=== PATIENT | male | born 1955 | race Caucasian/White ===

== ENCOUNTER 2016-12-12 17:32 | Emergency (ER) | payer OTHER ==
[~2016-12-12] VITALS: Ht 172.7 cm; Wt 70.0 kg
[~2016-12-12 17:32] MED LIST: LOSA25TA31 PO
--- NOTE | 2016-12-12 19:20 | PD ---
HPI Chief Complaint: Alcohol/Drug Intoxication Time Seen by Provider: 19:04 Travel History International Travel<30 days: No Contact w/Intl Traveler<30days: No History of Present Illness HPI 61yo M brought in here for alcohol intoxication. Pt has no signs of trauma. States "leave me alone". Pt answers some questions and moves all extremities. However, history is limited because he does not want to answer my questions. Pt has been here for alcohol intoxication before. PFSH Past Medical History Arthritis: Yes Blood Disorders: No Anxiety: Yes Cancer: No Cardiovascular Problems: No High Cholesterol: Yes Diminished Hearing: No Endocrine: No Genitourinary: No Hypertension: Yes Immune Disorder: No Musculoskeletal: No Neurologic: No Psychiatric: No Reproductive: No Respiratory: No Immunizations Current: Yes Past Surgical History Abdominal Surgery: No Cardiac Surgery: No Ear Surgery: No Endocrine Surgery: No Eye Surgery: No Genitourinary Surgery: No Gynecologic Surgery: No Oral Surgery: No Thoracic Surgery: No Other Surgery: Yes Social History Alcohol Use: Yes (OCCASIONALLY) Tobacco Use: No Substance Use: No Allergies-Medications (Allergen,Severity, Reaction): Coded Allergies: Doxycycline (Verified Allergy, Severe, Rash, 12/12/16) Bactrim (Verified Allergy, Intermediate, 12/12/16) itching, burning, joint pain *MDRO Multi-Drug Resistant Organism (Verified Adverse Reaction, Unknown, ) MRSA, wound, 05/2014 Reported Meds & Prescriptions Reported Meds & Active Scripts Active No Active Prescriptions or Reported Medications Review of Systems ROS Limitations: Intoxication Physical Exam Narrative GENERAL: 61yo M not in distress. SKIN: Warm and dry. HEAD: Atraumatic. Normocephalic. EYES: Pupils equal and round at 3mm bilaterally. NECK: Trachea midline. No JVD. CARDIOVASCULAR: Regular rate and rhythm. No murmur appreciated. RESPIRATORY: No accessory muscle use. Clear to auscultation. Breath sounds equal bilaterally. GASTROINTESTINAL: Abdomen soft, non-tender, nondistended. No rebound tenderness or guarding. MUSCULOSKELETAL: No obvious deformities. No clubbing. No cyanosis. No edema. NEUROLOGICAL: Easily arousable. Moves all extremities. Data Data Last Documented VS Vital Signs Date Time Temp Pulse Resp B/P Pulse Ox O2 Delivery O2 Flow Rate FiO2 12/12/16 20:01 95 Room Air 12/12/16 19:59 97.9 88 18 123/57 Orders MDM Medical Decision Making Medical Screen Exam Complete: Yes Emergency Medical Condition: Yes Differential Diagnosis Alcohol intoxication Narrative Course 61yo M brought in for alcohol intoxication. Pt has no complaints and no signs of trauma. Pt is verbally abusive to staff and refusing blood work. At this time, I feel that pt is awake, answering questions and just wants to sleep it off. Pt is calm if we leave him alone so do not feel restraints are needed. I do not feel lab work is required at this time so cancelled it. Pt will be observed in the ED until he is able to ambulate without assistance. Vital signs stable. Pt is now ambulating in the ED without assistance and demanding to get his back pack. Pt has no complaints, is AAOx3 and clinically sober to go home. Diagnosis Primary Impression: Alcohol intoxication Qualified Code: F10.120 - Alcohol intoxication, uncomplicated Patient Instructions: General Instructions Departure Forms: Tests/Procedures Additional Instructions: Please follow up with your PMD in 3-7 days. Return to the ED if symptoms worsen. Med/Other Pt SpecificInfo: No Change to Meds Scripts No Active Prescriptions or Reported Meds Disposition: 01 DISCHARGE HOME Condition: Stable Aurelia Martin DO Dec 12, 2016 19:20 Aurelia Martin DO Dec 12, 2016 19:20
[2016-12-12 19:59] VITALS: BP 123/57; PULSE 88; RESP 18; TEMP 97.9; O2SAT 95
== END 2016-12-13 00:40 | disposition home or self-care (01) ==
LOC: NEDAMB 17:32 → NEPA 12-13 00:40
DX: F10.120 Alcohol abuse with intoxication, uncomplicated (principal)
CPT/HCPCS: 99284

== ENCOUNTER 2017-05-16 13:31 | Emergency (ER) | payer OTHER ==
[2017-05-16 13:33] VITALS: BP 134/89; PULSE 104; RESP 15; TEMP 98.4; O2SAT 98
--- NOTE | 2017-05-16 13:43 | PD ---
HPI . b/l toes with scabbed area x few days Chief Complaint: Injury Time Seen by Provider: 13:43 Travel History International Travel<30 days: No Contact w/Intl Traveler<30days: No Traveled to known affect area: No History of Present Illness HPI 61-year-old male well known to me from the [facility] here with complaints of scabs over his toes that has been present for the past several days. Patient is homeless and has been going to the [facility] for generalized assistance. He reports that he was seen there today and told her needs to come into the ED for evaluation of his toes. He has not tried reaching out to the [facility] and came straight over here. He denies any fever or chills. He has no other complaints. PFSH Past Medical History Arthritis: Yes Blood Disorders: No Anxiety: Yes Cancer: No Cardiovascular Problems: No High Cholesterol: Yes Diminished Hearing: No Endocrine: No Genitourinary: No Hypertension: Yes Immune Disorder: No Musculoskeletal: No Neurologic: No Psychiatric: No Reproductive: No Respiratory: No Immunizations Current: Yes Past Surgical History Abdominal Surgery: No Cardiac Surgery: No Ear Surgery: No Endocrine Surgery: No Eye Surgery: No Genitourinary Surgery: No Gynecologic Surgery: No Oral Surgery: No Thoracic Surgery: No Other Surgery: Yes Social History Alcohol Use: Yes (OCCASIONALLY) Tobacco Use: No Substance Use: No Allergies-Medications (Allergen,Severity, Reaction): Coded Allergies: doxycycline (Unverified Allergy, Severe, Rash, 05/06/17) sulfamethoxazole (Unverified Allergy, Intermediate, 05/06/17) itching, burning, joint pain trimethoprim (Unverified Allergy, Intermediate, 05/06/17) itching, burning, joint pain *MDRO Multi-Drug Resistant Organism (Verified Adverse Reaction, Unknown, ) MRSA, wound, 05/2014 Reported Meds & Prescriptions Reported Meds & Active Scripts Active No Active Prescriptions or Reported Medications Review of Systems General / Constitutional: No: Fever Eyes: No: Visual changes HENT: No: Headaches Cardiovascular: No: Chest Pain or Discomfort Respiratory: No: Shortness of Breath Gastrointestinal: No: Abdominal Pain Genitourinary: No: Dysuria Musculoskeletal: No: Pain Skin: Positive Other (callus of feet ), No Rash Neurologic: No: Weakness Psychiatric: No: Depression Endocrine: No: Polydipsia Hematologic/Lymphatic: No: Easy Bruising Physical Exam Narrative GENERAL: AAO x 3, no acute distress, Well-nourished, well-developed patient. SKIN: Warm and dry. No visible rashes or bruising. Bilateral fourth toes on each feet with callus skin without any evidence of infection HEAD: Normocephalic and atraumatic. EYES: No scleral icterus. No injection or drainage. ENT: No nasal drainage noted. Mucous membranes pink. Airway patent. NECK: Supple, trachea midline. No JVD. CARDIOVASCULAR: Regular rate and rhythm without murmurs, gallops, or rubs. RESPIRATORY: Breath sounds equal bilaterally. No accessory muscle use. No rhonchi or rales. GASTROINTESTINAL: Visual inspection normal EXTREMITIES: No cyanosis or edema. BACK: No obvious deformity NEURO: Grossly intact PSYCH: AAO x 3, normal affect. Data Data Last Documented VS Vital Signs Date Time Temp Pulse Resp B/P (MAP) Pulse Ox O2 Delivery O2 Flow Rate FiO2 05/16/17 13:33 98.4 104 15 134/89 (104) 98 MDM Medical Decision Making Medical Screen Exam Complete: Yes Emergency Medical Condition: Yes Medical Record Reviewed: Yes Differential Diagnosis Callused skin, less likely cellulitis, less likely fracture Narrative Course A medical screening exam was performed: At the time of evaluation the presenting medical condition was determined not to be of an emergent nature. The patient was given the option of receiving additional care, but declined. Patient was given options for additional community resources from which to obtain care. The Patient Has Been advised to seek medical attention for their presenting complaint. The patient has been advised to return to the ER at any time if an emergent condition develops. I have personally be stuck to the provider at the [facility]. She will see the patient today. Patient was escorted to the [facility] for further workup and treatment. Diagnosis Primary Impression: Encounter for medical screening examination Scripts No Active Prescriptions or Reported Meds Condition: Leslie Becerril May 16, 2017 13:43
[2017-05-27] MEDS ORDERED: LEVA500T20 PO (07:27)
== END 2017-05-16 14:15 | disposition left against medical advice (07) ==
LOC: NEPK 13:31
DX: R23.4 Changes in skin texture (principal); M13.80 Other specified arthritis, unspecified site; F41.9 Anxiety disorder, unspecified; I10 Essential (primary) hypertension; Z59.0 Homelessness; Z88.2 Allergy status to sulfonamides; Z88.8 Allergy status to other drugs, medicaments and biological substances
CPT/HCPCS: 99281

== ENCOUNTER → 2017-05-21 | Outpatient (CLI) | payer OTHER ==
[~2017-05-21] MED LIST changes: +CEPH-460 PO; +CLIN1CAP5 PO; +LEVA500T20 PO; -LOSA25TA31 PO
[2017-05-21 11:57] LABS: HEMATOCRIT 35.1 % (39.0-51.0); MEAN CELL VOLUME 96.8 FL (80.0-100.0); MEAN CORPUSCULAR HEMOGLOBIN 32.3 PG (27.0-34.0); MEAN CORPUSCULAR HGB CONC 33.4 % (32.0-36.0); PLATELET COUNT 167 TH/MM3 (150-450); RED BLOOD COUNT 3.63 MIL/MM3 (4.50-5.90); RED CELL DISTRIBUTION WIDTH 14.7 % (11.6-17.2); REVIEW FLAG FINAL; WHITE BLOOD COUNT 5.5 TH/MM3 (4.0-11.0)
[2017-05-21 12:15] LABS: ANION GAP 8 MEQ/L (5-15); AST (GOT) 14 U/L (15-37); BICARBONATE 25.6 MEQ/L (21.0-32.0); BLOOD UREA NITROGEN 14 MG/DL (7-18); CHLORIDE 106 MEQ/L (98-107); GLOMERULAR FILTRATION RATE 92 ML/MIN (>89); GLUCOSE,FASTING 85 MG/DL (74-99); POTASSIUM 3.7 MEQ/L (3.5-5.1); SODIUM (NA) 140 MEQ/L (136-145)
[2017-05-21 12:16] LABS: ALT (GPT) 23 U/L (12-78)
[2017-05-21 12:26] LABS: ALKALINE PHOSPHATASE 87 U/L (45-117); HDL CHOLESTEROL 52.5 MG/DL (40.0-60.0); LDL CHOLESTEROL 81 MG/DL (0-99); TOTAL BILIRUBIN ADULT 0.5 MG/DL (0.2-1.0)
== END ==
LOC: CLAB 11:23
PROVIDERS: ATTEND Nurse Practitioner Family
DX: I10 Essential (primary) hypertension (principal)
CPT/HCPCS: 36415; 80053; 80061; 84443; 85027

== ENCOUNTER 2017-07-04 13:00 | Emergency (ER) | payer OTHER ==
[~2017-07-04] VITALS: Ht 177.8 cm; Wt 70.0 kg
[~2017-07-04 13:00] MED LIST changes: -CEPH-460 PO; -CLIN1CAP5 PO
[2017-07-04 13:02] VITALS: BP 133/85; PULSE 107; RESP 14; TEMP 98; O2SAT 98
[2017-07-04] MEDS ORDERED: CEPH-460 PO (14:59)
[2017-07-04] MEDS ORDERED: CLIN1CAP5 PO (15:00)
--- NOTE | 2017-07-04 15:00 | PD ---
HPI Chief Complaint: Skin Problem Time Seen by Provider: 14:57 Travel History International Travel<30 days: No Contact w/Intl Traveler<30days: No Traveled to known affect area: No History of Present Illness HPI 61-year-old male presents emergency Department with complaint of an infected blister to his right index finger 4 days. Says he popped the blister and pulled away the skin and thinks it's now infected. Denies fever, vomiting. Denies paresthesias, loss of sensation, decreased range of motion to the affected finger. Has not taken any medications to alleviate his symptoms. Has been using a cover bandage for wound care. No known aggravating or relieving factors. Symptoms are mild in severity. Pain is described as throbbing and burning sensation. History of MRSA. Allergies to doxycycline, sulfamethoxazole , trimethoprim. Has no other medical complaints. No other modifying factors or associated signs and symptoms. PFSH Past Medical History Arthritis: Yes Blood Disorders: No Anxiety: Yes Cancer: No Cardiovascular Problems: No High Cholesterol: Yes Diminished Hearing: No Endocrine: No Genitourinary: No Hypertension: Yes Immune Disorder: No Musculoskeletal: No Neurologic: No Psychiatric: No Reproductive: No Respiratory: No Immunizations Current: Yes Past Surgical History Abdominal Surgery: No Cardiac Surgery: No Ear Surgery: No Endocrine Surgery: No Eye Surgery: No Genitourinary Surgery: No Gynecologic Surgery: No Oral Surgery: No Thoracic Surgery: No Other Surgery: Yes Social History Alcohol Use: Yes (OCCASIONALLY) Tobacco Use: No Substance Use: No Allergies-Medications (Allergen,Severity, Reaction): Coded Allergies: doxycycline (Verified Allergy, Severe, Rash, 07/04/17) sulfamethoxazole (Verified Allergy, Intermediate, 07/04/17) itching, burning, joint pain trimethoprim (Verified Allergy, Intermediate, 07/04/17) itching, burning, joint pain *MDRO Multi-Drug Resistant Organism (Verified Adverse Reaction, Unknown, 07/04/17) MRSA, wound, 05/2014 Reported Meds & Prescriptions Reported Meds & Active Scripts Active Clindamycin (Clindamycin HCl) 150 Mg Cap 300 Mg PO Q6H 10 Days Levaquin (Levofloxacin) 500 Mg Tablet 500 Mg PO DAILY 10 Days Review of Systems Except as stated in HPI: all other systems reviewed are Neg Physical Exam Narrative GENERAL: Well-nourished, well-developed male patient, in no acute distress SKIN: Warm and dry. Distal, lateral aspect of right index finger with open moist, erythemic wound with erythema surrounding the wound; no drainage noted; the finger is mildly edematous and without erythema; finger with full range of motion, sensory intact, less than 3 second cap refill. HEAD: Atraumatic. Normocephalic. EYES: Pupils equal and round. No scleral icterus. No injection or drainage. ENT: Mucosa pink and moist. Airway patent. NECK: Trachea midline. CARDIOVASCULAR: Regular rate. RESPIRATORY: No accessory muscle use. GASTROINTESTINAL: Flap. MUSCULOSKELETAL: No obvious deformities. No clubbing. No cyanosis. No edema. NEUROLOGICAL: Awake and alert. Oriented 3. No obvious cranial nerve deficits. Motor grossly within normal limits. Normal speech. PSYCHIATRIC: Appropriate mood and affect; insight and judgment normal. Data Data Last Documented VS Vital Signs Date Time Temp Pulse Resp B/P (MAP) Pulse Ox O2 Delivery O2 Flow Rate FiO2 07/04/17 15:35 07/04/17 13:02 98.0 107 14 98 Orders Orders Ed Discharge Order (07/04/17 15:00) Wound Care (07/04/17 15:00) MDM Medical Decision Making Medical Screen Exam Complete: Yes Emergency Medical Condition: Yes Medical Record Reviewed: Yes Differential Diagnosis Infected wound, infected blister, abrasion Narrative Course 61-year-old male with a infected blister to his right index finger. Patient is afebrile and nontoxic-appearing. Denies fever, vomiting. Clindamycin prescribed for home. Wound care provided. Instructed patient to follow up with primary care provider. Patient verbalizes understanding and agreement with treatment plan. Patient is medically cleared and stable for discharge. Discussed reasons to return to the emergency department. Patient agrees with treatment plan. The patients vital signs are stable and the patient is stable for outpatient follow-up and treatment. Patient discharged home, stable and in no acute distress. Diagnosis Primary Impression: Finger, blister, infected Referrals: [facility] Primary Care Physician Patient Instructions: Acute Wound Care (DC), General Instructions Additional Instructions: Antibiotics as prescribed Antibiotic topical ointment as directed and as needed for wound care Keep area clean and dry Ibuprofen or Tylenol as directed and as needed for pain and inflammation Follow-up with primary care provider Return to the emergency department immediately with worsening of symptoms Med/Other Pt SpecificInfo: Prescription(s) given Scripts Clindamycin (Clindamycin) 150 Mg Cap 300 MG PO Q6H for Infection for 10 Days, #80 CAP 0 Refills Prov: Chelsy Peguero 07/04/17 Disposition: 01 DISCHARGE HOME Condition: Stable Chelsy Peguero Jul 04, 2017 15:00
== END 2017-07-04 15:37 | disposition home or self-care (01) ==
LOC: NEPK 13:00
DX: S60.420A Blister (nonthermal) of right index finger, initial encounter (principal); X58.XXXA Exposure to other specified factors, initial encounter; E78.5 Hyperlipidemia, unspecified; I10 Essential (primary) hypertension; F41.9 Anxiety disorder, unspecified
CPT/HCPCS: 99283

== ENCOUNTER 2018-01-03 10:39 | Emergency (ER) | payer SELFPAY ==
[~2018-01-03 10:39] MED LIST changes: +CLIN150C14 PO; -LEVA500T20 PO; +LEVA500T33 PO
[2018-01-03 10:41] VITALS: BP 142/68; PULSE 86; RESP 18; TEMP 98; O2SAT 97
--- NOTE | 2018-01-03 10:53 | PD ---
HPI Chief Complaint: Cold / Flu Symptoms Time Seen by Provider: 10:46 Travel History International Travel<30 days: No Contact w/Intl Traveler<30days: No Traveled to known affect area: No History of Present Illness HPI This is a 62-year-old male smoker who presents for evaluation of cough. Symptoms started 3 weeks ago. The cough is primarily dry but occasionally productive with yellow sputum. Cough is worse at night. Endorses associated nasal congestion. Denies fevers, chills, sore throat, shortness of breath, chest pain, abdominal pain, rash or recent travel. He has not tried using any [id number] medication for symptom relief. Denies any history of cardiac or pulmonary illness. He has no other complaints. PFSH Past Medical History Arthritis: Yes Blood Disorders: No Anxiety: Yes Cancer: No Cardiovascular Problems: No High Cholesterol: Yes Diminished Hearing: No Endocrine: No Genitourinary: No Hypertension: Yes Immune Disorder: No Musculoskeletal: No Neurologic: No Psychiatric: No Reproductive: No Respiratory: No Immunizations Current: Yes Past Surgical History Abdominal Surgery: No Cardiac Surgery: No Ear Surgery: No Endocrine Surgery: No Eye Surgery: No Genitourinary Surgery: No Gynecologic Surgery: No Oral Surgery: No Thoracic Surgery: No Other Surgery: Yes Social History Alcohol Use: Yes (OCCASIONALLY) Tobacco Use: No Substance Use: No Allergies-Medications (Allergen,Severity, Reaction): Coded Allergies: doxycycline (Verified Allergy, Severe, Rash, 07/04/17) sulfamethoxazole (Verified Allergy, Intermediate, 07/04/17) itching, burning, joint pain trimethoprim (Verified Allergy, Intermediate, 07/04/17) itching, burning, joint pain *MDRO Multi-Drug Resistant Organism (Verified Adverse Reaction, Unknown, 07/04/17) MRSA, wound, 05/2014 Reported Meds & Prescriptions Reported Meds & Active Scripts Active Tessalon Perles (Benzonatate) 100 Mg Cap 100 Mg PO TID PRN Azithromycin 250 Mg Tab 250 Mg PO DIRECTED Take 2 tabs (500 mg) on day 1 then 1 tab daily x 4 days. Clindamycin (Clindamycin HCl) 150 Mg Cap 300 Mg PO Q6H 10 Days Levaquin (Levofloxacin) 500 Mg Tablet 500 Mg PO DAILY 10 Days Review of Systems Except as stated in HPI: all other systems reviewed are Neg Physical Exam Narrative GENERAL: Well-developed well-nourished male in no acute distress SKIN: Warm and dry. HEAD: Atraumatic. Normocephalic. EYES: Pupils equal and round. No scleral icterus. No injection or drainage. ENT: No nasal bleeding or discharge. Mucous membranes pink and moist. No oral pharyngeal erythema or exudate. NECK: Trachea midline. No JVD. No lymphadenopathy. CARDIOVASCULAR: Regular rate and rhythm. No murmur appreciated. RESPIRATORY: No accessory muscle use. Clear to auscultation. Breath sounds equal bilaterally. No crackles no wheezing no rhonchi GASTROINTESTINAL: Abdomen soft, non-tender, nondistended. Hepatic and splenic margins not palpable. MUSCULOSKELETAL: No obvious deformities. No edema NEUROLOGICAL: Awake and alert. No obvious cranial nerve deficits. Motor grossly within normal limits. Normal speech. Data Data Last Documented VS Vital Signs Date Time Temp Pulse Resp B/P (MAP) Pulse Ox O2 Delivery O2 Flow Rate FiO2 01/03/18 10:41 98.0 86 18 142/68 (92) 97 Orders Orders Chest, Pa & Lat (01/03/18 ) [facility] Medical Decision Making Medical Screen Exam Complete: Yes Emergency Medical Condition: Yes Medical Record Reviewed: Yes Differential Diagnosis Bronchitis, pneumonia, rhinitis, sinusitis, COPD Narrative Course 62-year-old male smoker presents with a cough for 3 weeks. He appears well. His lungs are clear to auscultation. Given the duration of symptoms a chest x- ray was obtained and it reveals no acute abnormalities. The plan is to treat the patient with azithromycin and Tessalon. He was strongly encouraged to quit smoking. He is stable for discharge. Diagnosis Primary Impression: Bronchitis Additional Instructions: Medication as prescribed. Avoid tobacco products. Follow-up with primary care physician as needed and return for any emergent medical conditions. Med/Other Pt SpecificInfo: Prescription(s) given Scripts Benzonatate (Tessalon Perles) 100 Mg Cap 100 MG PO TID Y for COUGH, #30 CAP 0 Refills Prov: Justin Michael MD 01/03/18 Azithromycin (Azithromycin) 250 Mg Tab 250 MG PO DIRECTED for Infection, #6 TAB 0 Refills Take 2 tabs (500 mg) on day 1 then 1 tab daily x 4 days. Prov: Justin Michael MD 01/03/18 Disposition: 01 DISCHARGE HOME Condition: Stable Tonny Curran Jan 03, 2018 10:53
--- NOTE | 2018-01-03 11:18 | RADRPT ---
EXAM DATE/TIME: 01/03/2018 11:02 [facility] COMPARISON: No previous studies available for comparison. INDICATIONS : Cough. MEDICAL HISTORY : None. SURGICAL HISTORY : None. ENCOUNTER: Initial ACUITY: 2 weeks PAIN SCORE: 0/10 LOCATION: Bilateral chest FINDINGS: PA and lateral views of the chest demonstrate the lungs to be symmetrically aerated without evidence of mass, infiltrate or effusion. Scattered calcified pleural plaques The cardiomediastinal contours are unremarkable. Osseous structures are intact. CONCLUSION: No acute disease. Flavio Childress MD FACR on January 03, 2018 at 11:11 Board Certified Radiologist. This report was verified electronically.
[2018-01-03] MEDS ORDERED: BENZ100 PO (11:22)
[2018-01-03] MEDS ORDERED: AZIT250T3 PO (11:22)
== END 2018-01-03 11:44 | disposition home or self-care (01) ==
LOC: NEPD 10:39
DX: J40 Bronchitis, not specified as acute or chronic (principal); F17.210 Nicotine dependence, cigarettes, uncomplicated
CPT/HCPCS: 71046; 99283

== ENCOUNTER 2018-04-22 08:33 | Inpatient (IN) ==
[2018-04-22] MEDS ORDERED: Piperacil/Tazo 4.5 GM Premix 4.5 GM/100 ML BAG IV.SIG STA (09:15)
[2018-04-22] MEDS ORDERED: Vancomycin Inj 1,000 MG in Sodium Chlor 0.9% Inj 250 ML IV.SIG STA (09:15)
[2018-04-22 09:46] LABS: Baso % (Auto) 0.2 % (0.0-2.0); Eos % (Auto) 0.2 % (0.0-4.0); Hematocrit 38.3 % (39.0-51.0); Hemoglobin 13.4 gm/dL (13.0-17.0); Lymph # (Auto) 0.8 th/mm3 (1.0-4.8); Lymph % (Auto) 7.4 % (9.0-44.0); Mean Corpuscular HGB Conc 34.9 % (32.0-36.0); Mean Corpuscular Hemoglobin 33.4 pg (27.0-34.0); Mean Corpuscular Volume 95.7 fL (80.0-100.0); Mean Platelet Volume 7.8 fL (7.0-11.0); Mono # (Auto) 1.9 th/mm3 (0.0-0.9); Mono % (Auto) 16.9 % (0.0-8.0); Neut # (Auto) 8.5 th/mm3 (1.8-7.7); Neut % (Auto) 75.3 % (16.0-70.0); Platelet Count 185 th/mm3 (150-450); Red Cell Distribution Width 15.6 % (11.6-17.2); White Blood Count 11.3 th/mm3 (4.0-11.0)
[2018-04-22 10:00] LABS: Albumin 2.6 g/dL (3.4-5.0); Anion Gap 12 meq/L (5-15); Aspartate Aminotransferase 34 U/L (15-37); Blood Urea Nitrogen 9 mg/dL (7-18); Calcium 8.4 mg/dL (8.5-10.1); Carbon Dioxide 22.4 meq/L (21.0-32.0); Chloride 95 meq/L (98-107); Glomerular Filtration Rate Greater Than 89 mL/min (>89); Glucose,Random 93 mg/dL (74-106); Lipase 154 U/L (73-393); Potassium 3.5 meq/L (3.5-5.1); Sodium 129 meq/L (136-145)
[2018-04-22 10:01] LABS: Alanine Aminotransferase 31 U/L (12-78)
[2018-04-22 10:03] LABS: Alkaline Phosphatase 84 U/L (45-117); Total Protein 7.6 g/dL (6.4-8.2)
--- NOTE | 2018-04-22 10:06 | ED ---
HPI General Chief Complaint: Wound/Laceration Stated Complaint: Right Elbow Time Seen by Provider: 04/22/18 09:15 Source: patient Mode of arrival: ambulatory Limitations: no limitations History of Present Illness HPI narrative: The patient reports that he has been recently incarcerated. He states that he slipped and fell in the bathroom in [facility] and struck his elbow on the bathroom floor. He has subsequently developed swelling of the right elbow. He comes in to us today for evaluation and treatment of this. Onset (ago): day(s) (3) Extremity Location: Right: elbow Place: other ([facility]) Context: accidental Associated symptoms: other (swelling) Related Data Home Medications Medication Instructions Recorded Confirmed No Known Home Medications 04/22/18 04/22/18 Allergies Allergy/AdvReac Type Severity Reaction Status Date / Time doxycycline Allergy Severe Rash Verified 07/04/17 14:41 sulfamethoxazole Allergy Intermediate Itching Verified 04/22/18 09:05 trimethoprim Allergy Intermediate Itching Verified 04/22/18 09:05 Review of Systems Except as stated in HPI: all other systems reviewed are negative [facility] [place] Medical History Medical History Patient denies medical problems (Acute) Surgical History Surgical History No history of previous surgery (Acute) Social History Social History Substance History: No History of Abuse Smoking Status: Former smoker How Often Do You Have a Drink Containing Alcohol: Never Recent Travel in [facility] within the Last 8 Weeks: No Recent Out of Country Travel within the Last 8 Weeks: No Immunization History Tetanus Immunization: <5 Years Hx Influenza Vaccine This Season: No Exam Const General: cooperative, healthy appearing and comfortable [facility] Head: normal to inspection, normocephalic and atraumatic Eyes General: appearance normal, both eyes and all related structures Conjunctivae: conjunctivae normal Sclera: sclerae normal EOM: EOM intact bilaterally Neck Neck: normal visual inspection and full ROM Chest Chest: normal inspection of the chest Resp Effort & Inspection: normal respiratory effort and able to speak in complete sentences Cardio Rate: regular rate Rhythm: regular rhythm Back/Spine/Pelvis Cervical Spine: cervical ROM normal Thoracic/Lumbar Spine: thoraco-lumbar ROM normal Skin General: erythema Lesions: lesion noted (right elbow. large, purulent collection.) Neuro General: alert, awake, oriented x3, moves all extremities and CN's II-XI intact bilaterally Extrem General: normal exam except as noted Right upper extremity: edema and elbow/forearm (Large area of purulence on the right elbow.) Details: tenderness, swelling and warmth Psych Appearance: grossly normal Mental Status: mental status grossly normal Speech and Movement: speech and movement normal Mood: congruent mood Affect: normal affect Attitude: cooperative Thought Process: normal Thought Content: normal Judgment: judgment good Procedures Abscess I/D Site: upper extremity (Elbow) Side (if applicable): right Anesthetic used: with epi Technique: incised with #11 blade Amount of fluid expressed (mL): 1 Irrigation: Yes Packing used?: iodoform Course Consultations Consultation #1: Dr. Hayes Time: 13:17 Initial Documented Vital Signs Temperature 100.1 F H 04/22/18 08:51 Pulse Rate 97 H 04/22/18 08:51 Respiratory Rate 17 04/22/18 08:51 Blood Pressure 132/74 04/22/18 08:51 Pulse Oximetry 96 04/22/18 08:51 Last Documented Vital Signs Temperature 98.6 F 04/22/18 08:54 Pulse Rate 78 04/22/18 08:54 Respiratory Rate 16 04/22/18 10:32 Blood Pressure 121/70 04/22/18 08:54 Pulse Oximetry 98 04/22/18 10:32 Medical Decision Making [facility] Narrative Medical decision making narrative: This patient presents with a large abscess on the right elbow. I initiated a septic workup. The nurse then informed me that the abscess has spontaneously ruptured. Culture was obtained. He is being treated in the emergency department with IV Zosyn and vancomycin. Differential Diagnosis Differential Diagnosis: My differential diagnosis of abscess includes but is not limited to abscess, cyst, lipoma Lab Data Lab results reviewed: Yes I reviewed the patient's lab results. Result diagrams: 04/22/18 09:10 04/22/18 09:10 Lab Results 04/22/18 04/22/18 04/22/18 Range/Units 09:10 09:10 09:20 WBC 11.3 H (4.0-11.0) th/mm3 RBC 4.00 L (4.50-5.90) mil/mm3 Hgb 13.4 (13.0-17.0) gm/dL Hct 38.3 L (39.0-51.0) % MCV 95.7 (80.0-100.0) fL MCH 33.4 (27.0-34.0) pg MCHC 34.9 (32.0-36.0) % RDW 15.6 (11.6-17.2) % Plt Count 185 (150-450) th/mm3 MPV 7.8 (7.0-11.0) fL Neut % (Auto) 75.3 H (16.0-70.0) % Lymph % (Auto) 7.4 L (9.0-44.0) % [place]kin % (Auto) 16.9 H (0.0-8.0) % Eos % (Auto) 0.2 (0.0-4.0) % Baso % (Auto) 0.2 (0.0-2.0) % Neut # (Auto) 8.5 H (1.8-7.7) th/mm3 Lymph # (Auto) 0.8 L (1.0-4.8) th/mm3 Lumpkin # (Auto) 1.9 H (0.0-0.9) th/mm3 Eos # (Auto) 0.0 (0.0-0.4) th/mm3 Baso # (Auto) 0.0 (0.0-0.2) th/mm3 WBC Differential . Differential Comment Auto diff final Sodium 129 L (136-145) meq/L Potassium 3.5 (3.5-5.1) meq/L Chloride 95 L (98-107) meq/L Carbon Dioxide 22.4 (21.0-32.0) meq/L Anion Gap 12 (5-15) meq/L BUN 9 (7-18) mg/dL Creatinine 0.76 (0.60-1.30) mg/dL Estimated GFR Greater than 89 (>89) mL/min POC Glucose (68-110) mg/dl Random Glucose 93 (74-106) mg/dL Lactic Acid 1.2 (0.4-2.0) mmol/L Calcium 8.4 L (8.5-10.1) mg/dL Total Bilirubin 0.9 (0.2-1.0) mg/dL AST 34 (15-37) U/L ALT 31 (12-78) U/L Alkaline Phosphatase 84 (45-117) U/L Total Protein 7.6 (6.4-8.2) g/dL Albumin 2.6 L (3.4-5.0) g/dL Lipase 154 (73-393) U/L 04/22/18 Range/Units 09:46 WBC (4.0-11.0) th/mm3 RBC (4.50-5.90) mil/mm3 Hgb (13.0-17.0) gm/dL Hct (39.0-51.0) % MCV (80.0-100.0) fL MCH (27.0-34.0) pg MCHC (32.0-36.0) % RDW (11.6-17.2) % Plt Count (150-450) th/mm3 MPV (7.0-11.0) fL Neut % (Auto) (16.0-70.0) % Lymph % (Auto) (9.0-44.0) % [place] % (Auto) (0.0-8.0) % Eos % (Auto) (0.0-4.0) % Baso % (Auto) (0.0-2.0) % Neut # (Auto) (1.8-7.7) th/mm3 Lymph # (Auto) (1.0-4.8) th/mm3 [place]kin # (Auto) (0.0-0.9) th/mm3 Eos # (Auto) (0.0-0.4) th/mm3 Baso # (Auto) (0.0-0.2) th/mm3 WBC Differential Differential Comment Sodium (136-145) meq/L Potassium (3.5-5.1) meq/L Chloride (98-107) meq/L Carbon Dioxide (21.0-32.0) meq/L Anion Gap (5-15) meq/L BUN (7-18) mg/dL Creatinine (0.60-1.30) mg/dL Estimated GFR (>89) mL/min POC Glucose 100 (68-110) mg/dl Random Glucose (74-106) mg/dL Lactic Acid (0.4-2.0) mmol/L Calcium (8.5-10.1) mg/dL Total Bilirubin (0.2-1.0) mg/dL AST (15-37) U/L ALT (12-78) U/L Alkaline Phosphatase (45-117) U/L Total Protein (6.4-8.2) g/dL Albumin (3.4-5.0) g/dL Lipase (73-393) U/L Discharge Plan Discharge Disposition Patient Disposition: 30 Still Patient Discharge Details Diagnosis: Abscess Physicians Team ED Provider: Cee Mccabe Primary Care Provider: Primary Care Quiquei,Tamara Rxs /Orders / Referrals /Forms Prescriptions: No Action No Known Home Medications RF: 0 Status ED Status: With Doctor
[2018-04-22] MEDS ORDERED: Vancomycin Consult Pharmacy 1 EACH OTHER SCH (15:00)
--- NOTE | 2018-04-22 16:53 | P.HP ---
History of Present Illness Primary Care Physician: No Primary Care Physician History of Present Illness: 62-year-old white male being admitted for R arm abscess. Patient was in his usual state of health until about 2-3 days ago when he began experiencing right arm and elbow swelling. Says that he was in care home at the time and fell on the bathroom floor. Says it started draining today and decided come to the emergency department. Reports feeling a little lightheaded for the past few days. Patient denies this ever occurring to him in the past. He is homeless, says he was incarcerated for trespassing, says he sleeps where he can find a spot. Patient came to the ER, had spontaneous rupture of volar aspect of abscess welling with drainage. Had packing placed. Found to be hyponatremic. Review of Systems All other systems reviewed negative except as stated in HPI PMFSH - History History Provided By: Patient - Medical History Medical History: Medical History (Last Updated 04/22/18 @ 16:52 by Charli Hayes MD) Patient denies medical problems (Acute) - Surgical History Surgical History: Surgical History (Last Reviewed 04/22/18 @ 16:52 by Charli Hayes MD) No history of previous surgery - Family History Family History: Family History (Last Updated 04/22/18 @ 16:52 by Charli Hayes MD) Other Patient denies significant medical history - Tobacco History Smoking Status: Former smoker - Alcohol History How Often Do You Have a Drink Containing Alcohol: Never - Substance Use History Substance History: No History of Abuse, Past History (THC, mushrooms, Snorting heroin; denies IVDU) - Travel History Recent Travel in the [facility] Within the Last 8 Weeks: No Recent Travel Out of the Country Within the Last 8 Weeks: No - Immunization History Tetanus Immunization: <5 Years Hx Influenza Vaccine This Season: No Medications and Allergies Active Medications: Active Medications Pharmacy Profile Note (Vancomycin Consult Pharmacy) 0 mls @ 0 mls/hr OTHER UNSCH GINO Vancomycin HCl 1,250 mg/ (Sodium Chloride) 275 mls @ 250 mls/hr IV.SIG Q12H GINO Miscellaneous Information ([facility] Ordered Lab Info) 0 each OTHER ONCE ONE Stop: 04/23/18 20:46 Sodium Chloride (Ns Flush) 2 ml IV.FLUSH BID GINO Sodium Chloride (Ns Flush) 2 ml IV.FLUSH PRN PRN PRN Reason: FLUSH AFTER USING IV ACCESS Allergies Allergy/AdvReac Type Severity Reaction Status Date / Time doxycycline Allergy Severe Rash Verified 07/04/17 14:41 sulfamethoxazole Allergy Intermediate Itching Verified 04/22/18 09:05 trimethoprim Allergy Intermediate Itching Verified 04/22/18 09:05 Home Medications Medication Instructions Recorded Confirmed Type No Known Home Medications 04/22/18 04/22/18 History Exam Vital signs: Vital Signs 04/22/18 08:51 04/22/18 08:54 04/22/18 10:32 Temperature 100.1 F H 98.6 F Pulse Rate 97 H 78 Respiratory Rate 17 17 16 Blood Pressure 132/74 121/70 Pulse Oximetry 96 100 98 04/22/18 12:56 04/22/18 14:16 04/22/18 14:53 Temperature 98.6 F Pulse Rate 85 76 100 H Respiratory Rate 19 18 18 Blood Pressure 141/67 H 138/79 141/95 H Pulse Oximetry 94 L 96 93 L Intake & Output 04/21/18 04/22/18 04/22/18 18:59 06:59 18:59 Intake Total 350 / 350 Balance 350 / 350 Weight 81.647 kg Intake: IV 350 / 350 Zosyn 4.5 GM Premix 4.5 gm In 100 / 100 100 ml @ 200 mls/hr IV.SIG STAT STA Rx#:[id number] Vancomycin Inj 1,000 MG In NS 250 / 250 Inj 250 ML @ 250 mls/hr IV.SIG STAT STA Rx#:[id number] Narrative: VS: afebrile GENERAL: Lying in bed, awake and alert, no acute distress SKIN: Warm and dry. Has erythema extending midway up the arm down into the forearm spanning the elbow EYES: No scleral icterus. No injection or drainage. ENT: No nasal bleeding or discharge. Mucous membranes pink and moist. CARDIOVASCULAR: Regular rate and rhythm. no murmurs RESPIRATORY: No accessory muscle use. Clear to auscultation. Breath sounds equal bilaterally. GASTROINTESTINAL: Abdomen nondistended. Extremities: No clubbing, cyanosis, or edema. No obvious deformities. MUSCULOSKELETAL: adequate muscle bulk and tone for age and habitus. Has profound edema over distal right arm spanning elbow and into this forearm. Has pain. Has packing in place over volar surface. Has intact range of motion of elbow joint but has more pain with elbow extension. NEUROLOGICAL: Awake and alert. No obvious cranial nerve deficits. No facial droop nor slurred speech noted. PSYCHIATRIC: Appropriate mood and affect; insight and judgment normal. Results - Labs CBC & Chem 7: 04/22/18 09:10 04/22/18 09:10 Labs: Laboratory Results - last 24 hr 04/22/18 04/22/18 04/22/18 09:10 09:10 09:20 WBC 11.3 H RBC 4.00 L Hgb 13.4 Hct 38.3 L MCV 95.7 MCH 33.4 MCHC 34.9 RDW 15.6 Plt Count 185 MPV 7.8 Neut % (Auto) 75.3 H Lymph % (Auto) 7.4 L Hale % (Auto) 16.9 H Eos % (Auto) 0.2 Baso % (Auto) 0.2 Neut # (Auto) 8.5 H Lymph # (Auto) 0.8 L Hale # (Auto) 1.9 H Eos # (Auto) 0.0 Baso # (Auto) 0.0 WBC Differential . Differential Comment Auto diff final Sodium 129 L Potassium 3.5 Chloride 95 L Carbon Dioxide 22.4 Anion Gap 12 BUN 9 Creatinine 0.76 Estimated GFR Greater than 89 POC Glucose Random Glucose 93 Lactic Acid 1.2 Calcium 8.4 L Total Bilirubin 0.9 AST 34 ALT 31 Alkaline Phosphatase 84 Total Protein 7.6 Albumin 2.6 L Lipase 154 04/22/18 09:46 WBC RBC Hgb Hct MCV MCH MCHC RDW Plt Count MPV Neut % (Auto) Lymph % (Auto) Hale % (Auto) Eos % (Auto) Baso % (Auto) Neut # (Auto) Lymph # (Auto) Hale # (Auto) Eos # (Auto) Baso # (Auto) WBC Differential Differential Comment Sodium Potassium Chloride Carbon Dioxide Anion Gap BUN Creatinine Estimated GFR POC Glucose 100 Random Glucose Lactic Acid Calcium Total Bilirubin AST ALT Alkaline Phosphatase Total Protein Albumin Lipase Caprini VTE Risk Assessment Caprini VTE Risk Assessment: Moderate/High Risk (score >= 2) VTE Pharmacological Exception Reason: Postop bleeding Caprini Risk Assessment Model: Point Value = 1 Point Value = 2 Point Value = 3 Point Value = 5 Age 41-60 Minor surgery BMI > 25 kg/m2 Swollen legs Varicose veins or History of unexplained or recurrent spontaneous Oral contraceptives or hormone replacement Sepsis (< 1 month) Serious lung disease, including pneumonia (< 1 month) Abnormal pulmonary function Acute myocardial infarction Congestive heart failure (< 1 month) History of inflammatory bowel disease Medical patient at bed rest Age 61-74 Arthroscopic surgery Major open surgery (> 45 min) Laparoscopic surgery (> 45 min) Malignancy Confined to bed (> 72 hours) Immobilizing plaster cast Central venous access Age >= 75 History of VTE Family history of VTE Factor V Leiden Prothrombin [id number] Lupus anticoagulant Anticardiolipin antibodies Elevated serum homocysteine Heparin-induced thrombocytopenia Other congenital or acquired thrombophilia Stroke (< 1 month) Elective arthroplasty Hip, pelvis, or leg fracture Acute spinal cord injury (< 1 month) Prophylaxis Regimen: Total Risk Factor Score Risk Level Prophylaxis Regimen 0-1 Low Early ambulation 2 Moderate Order ONE of the following: *Sequential Compression Device (SCD) *Heparin 5000 units SQ BID 3-4 Higher Order ONE of the following medications: *Heparin 5000 units SQ TID *Enoxaparin/Lovenox 40 mg SQ daily (WT < 150 kg, CrCl > 30 mL/min) *Enoxaparin/Lovenox 30 mg SQ daily (WT < 150 kg, CrCl > 10-29 mL/min) *Enoxaparin/Lovenox 30 mg SQ BID (WT < 150 kg, CrCl > 30 mL/min) AND/OR *Sequential Compression Device (SCD) 5 or more Highest Order ONE of the following medications: *Heparin 5000 units SQ TID (Preferred with Epidurals) *Enoxaparin/Lovenox 40 mg SQ daily (WT < 150 kg, CrCl > 30 mL/min) *Enoxaparin/Lovenox 30 mg SQ daily (WT < 150 kg, CrCl > 10-29 mL/min) *Enoxaparin/Lovenox 30 mg SQ BID (WT < 150 kg, CrCl > 30 mL/min) AND *Sequential Compression Device (SCD) Assessment and Plan - Plan Extensive RUE Abscess - 2/2 traumatic injury, possible inoculation - continue vancomycin and Zosyn - blood cultures and wound culture pending - Checking urine drug screen given prior history Case already discussed w/ ortho- now consulted - US ordered and plain films; may need MRI to ensure no osteo is present - ESR and CRP ordered Hyponatremia - likely 2/2 dehydration - IVFs, AM BMP SCDs, no lovenox given possible procedures
--- NOTE | 2018-04-22 17:41 | XR ---
EXAM DATE: 04/22/2018 5:33 PM EDT AGE/SEX: 62 years / Male INDICATIONS: Right elbow swelling and infection. CLINICAL DATA: This is the patient's initial encounter. Patient reports that signs and symptoms have been present for 3 days and indicates a pain score of 10/10. MEDICAL/SURGICAL HISTORY: None. None. COMPARISON: No prior exams available for comparison. FINDINGS: The examination demonstrates subcutaneous air posterior to the olecranon, diffuse soft tissue swellin g of the elbow and distal humerus region. No underlying fracture or dislocation. CONCLUSION: There is prominent soft tissue swelling as well as subcutaneous emphysema posterior to the elbow conc erning for infection with gas-forming organism. Prominent edema is also suspected along the posterior aspect of the arm. No underlying bone abnormality. Electronically signed by: Akash Hein MD 04/22/2018 5:39 PM EDT
[2018-04-22] MEDS ORDERED: Gadobutrol PF 7.5 MMOL/7.5 ML Vial (for RAD) IV.SIG ONE (19:00)
--- NOTE | 2018-04-22 20:02 | US ---
EXAM DATE: 04/22/2018 7:26 PM EDT AGE/SEX: 62 years / Male INDICATIONS: Abscess, right elbow. CLINICAL DATA: This is the patient's initial encounter. Patient reports that signs and symptoms have been present for 3 days and indicates a pain score of 2/10. MEDICAL/SURGICAL HISTORY: . . COMPARISON: No prior exams available for comparison. FINDINGS: There is hyperemia and soft tissue swelling and edema around the right elbow. No drainable fluid viktoriya ections to suggest abscess. CONCLUSION: 1. Soft tissue swelling, edema and hyperemia around the right elbow without discrete abscess. Electronically signed by: Chris Mckoy MD 04/22/2018 8:00 PM EDT
--- NOTE | 2018-04-22 21:12 | MR ---
EXAM DATE: 04/22/2018 8:59 PM EDT AGE/SEX: 62 years / Male INDICATIONS: Abscess. Fell 3 days ago. Wound on posterior right elbow. CLINICAL DATA: This is the patient's subsequent encounter. Patient reports that signs and symptoms h ave been present for 3 days and indicates a pain score of 4/10. MEDICAL/SURGICAL HISTORY: None. None. COMPARISON: No prior exams available for comparison. TECHNIQUE: Multiplanar, multisequence MRI examination was performed without contrast and after the i ntravenous administration of 7 ml Gadavist (gadobutrol) contrast as a single exam dose. FINDINGS: There is fairly marked soft tissue swelling and an open wound on the posterior elbow there is extensi ve edema in the soft tissues around the elbow with probable early microabscess formation in the subcu taneous soft tissues, all measuring less than a centimeter in diameter and more prominent on the medi al aspect. Packing material is present. There is some triceps tendinopathy but no full-thickness tear. There is some marrow edema and marrow enhancement over the olecranon. Differential diagnosis includes an early osteomyelitis versus enhancing contusion related to recent trauma. There is a small elbow j oint effusion. No acute marrow abnormality identified in the distal humerus and proximal ulna. CONCLUSION: 1. Marrow edema and enhancement in the olecranon. Differential diagnosis includes bone contusion wit h enhancement or early osteomyelitis. No significant bone destruction identified. 2. Extensive cellulitis over the posterior elbow with packing material, subcutaneous edema and proba ble small microabscess formation. Electronically signed by: Chris Mckoy MD 04/22/2018 9:11 PM EDT
[2018-04-22] MEDS: Vancomycin Inj 1,250 MG in Sodium Chlor 0.9% Inj 250 ML IV.SIG SCH (22:37)
--- NOTE | 2018-04-22 22:37 | P.CONOP ---
[facility] Orthopedics Consult Note - [facility] Consult date: 04/22/18 Chief complaint: Abscess, Right elbow Narrative: 62 yo homeless male presents with abscess formation on his right olecranon bursal region. He states that he sustained a fall while in [facility] about one week ago. He does not believe that he cut his elbow, but just bruised it really bad. He was released from [facility] last Friday and he did not think that there was anything wrong with his elbow. He denies other injuries. He noted increased swelling and pain. He presented to ER today. He underwent incision and packing in ER. An MRI was completed which I reviewed with Dr. Mckoy. the patient states that he fells much better since the abscess was drained. Review of Systems All other systems reviewed negative except as stated in [facility] PMF[facility] - History History Provided By: Patient - Medical History Medical History: Medical History (Last Reviewed 04/22/18 @ 22:31 by Chiki Ricardo MD) Patient denies medical problems (Acute) - Surgical History Surgical History: Surgical History (Last Reviewed 04/22/18 @ 22:32 by Chiki Ricardo MD) No history of previous surgery - Family History Family History: Family History (Last Reviewed 04/22/18 @ 22:32 by Chiki Ricardo MD) Other Patient denies significant medical history - Tobacco History Second Hand Smoke Exposure: No Smoking Status: Former smoker Tobacco Type: Cigarettes - Alcohol History How Often Do You Have a Drink Containing Alcohol: Never - Substance Use History Substance History: No History of Abuse, Past History (THC, mushrooms, Snorting heroin; denies IVDU) - Travel History Recent Travel in the [facility] Within the Last 8 Weeks: No Recent Travel Out of the Country Within the Last 8 Weeks: No - Immunization History Tetanus Immunization: <5 Years Hx Influenza Vaccine This Season: No Medications and Allergies Active Medications: Active Medications Acetaminophen (Tylenol) 650 mg PO Q4H PRN PRN Reason: PAIN 1-10 AND/OR FEVER >101F Pharmacy Profile Note (Vancomycin Consult Pharmacy) 0 mls @ 0 mls/hr OTHER UNSCH GINO Vancomycin HCl 1,250 mg/ (Sodium Chloride) 275 mls @ 250 mls/hr IV.SIG Q12H GINO Piperacillin/Tazobactam/Dextrose (Zosyn 3.375 Gm Premix) 50 mls @ 100 mls/hr IV.SIG Q6H GINO Sodium Chloride (Ns Inj) 1,000 mls @ 84 mls/hr IV.CONT .[id number] GINO Miscellaneous Information ([facility] Ordered Lab Info) 0 each OTHER ONCE ONE Stop: 04/23/18 20:46 Sodium Chloride (Ns Flush) 2 ml IV.FLUSH BID GINO Sodium Chloride (Ns Flush) 2 ml IV.FLUSH PRN PRN PRN Reason: FLUSH AFTER USING IV ACCESS Allergies Allergy/AdvReac Type Severity Reaction Status Date / Time doxycycline Allergy Severe Rash Verified 07/04/17 14:41 sulfamethoxazole Allergy Intermediate Itching Verified 04/22/18 09:05 trimethoprim Allergy Intermediate Itching Verified 04/22/18 09:05 Home Medications Medication Instructions Recorded Confirmed Type No Known Home Medications 04/22/18 04/22/18 History Exam Vital signs: Vital Signs 04/22/18 08:51 04/22/18 08:54 04/22/18 10:32 Temperature 100.1 F H 98.6 F Pulse Rate 97 H 78 Respiratory Rate 17 17 16 Blood Pressure 132/74 121/70 Pulse Oximetry 96 100 98 04/22/18 12:56 04/22/18 14:16 04/22/18 14:53 Temperature 98.6 F Pulse Rate 85 76 100 H Respiratory Rate 19 18 18 Blood Pressure 141/67 H 138/79 141/95 H Pulse Oximetry 94 L 96 93 L Intake & Output 04/22/18 04/22/18 04/23/18 06:59 18:59 06:59 Intake Total 1150 / 1150 Balance 1150 / 1150 Weight 81.647 kg Intake: IV 350 / 350 Zosyn 4.5 GM Premix 4.5 gm In 100 / 100 100 ml @ 200 mls/hr IV.SIG STAT STA Rx#:[id number] Vancomycin Inj 1,000 MG In NS 250 / 250 Inj 250 ML @ 250 mls/hr IV.SIG STAT STA Rx#:[id number] Oral 800 / 800 Other: # Voids 1,200 - Constitutional no acute distress - Routine HEENT Exam Head: Present: normocephalic, atraumatic Eye: Present: EOMI, PERRL ENT: Present: mucous membranes moist - Routine Neck Exam Present: supple - Routine Extremities Exam Comments: Left upper extremity benign Right upper extremity with packing in olecranon small wound Mild/moderate swelling Mild diffuse erythema Neuro exam intact Vascular exam intact skin otherwise intact Results - Labs Result Diagrams: 04/22/18 09:10 04/22/18 09:10 Labs: Laboratory Results - last 24 hr 04/22/18 04/22/18 04/22/18 09:10 09:10 09:10 WBC 11.3 H RBC 4.00 L Hgb 13.4 Hct 38.3 L MCV 95.7 MCH 33.4 MCHC 34.9 RDW 15.6 Plt Count 185 MPV 7.8 Neut % (Auto) 75.3 H Lymph % (Auto) 7.4 L [place] % (Auto) 16.9 H Eos % (Auto) 0.2 Baso % (Auto) 0.2 Neut # (Auto) 8.5 H Lymph # (Auto) 0.8 L [place] # (Auto) 1.9 H Eos # (Auto) 0.0 Baso # (Auto) 0.0 WBC Differential . Differential Comment Auto diff final Sodium 129 L Potassium 3.5 Chloride 95 L Carbon Dioxide 22.4 Anion Gap 12 BUN 9 Creatinine 0.76 Estimated GFR Greater than 89 POC Glucose Random Glucose 93 Lactic Acid Calcium 8.4 L Total Bilirubin 0.9 AST 34 ALT 31 Alkaline Phosphatase 84 C-Reactive Protein 17.00 H Total Protein 7.6 Albumin 2.6 L Lipase 154 04/22/18 04/22/18 09:20 09:46 WBC RBC Hgb Hct MCV MCH MCHC RDW Plt Count MPV Neut % (Auto) Lymph % (Auto) [place] % (Auto) Eos % (Auto) Baso % (Auto) Neut # (Auto) Lymph # (Auto) [place] # (Auto) Eos # (Auto) Baso # (Auto) WBC Differential Differential Comment Sodium Potassium Chloride Carbon Dioxide Anion Gap BUN Creatinine Estimated GFR POC Glucose 100 Random Glucose Lactic Acid 1.2 Calcium Total Bilirubin AST ALT Alkaline Phosphatase C-Reactive Protein Total Protein Albumin Lipase - Diagnostic results Imaging: Impressions Elbow MRI 04/22/18 00:00 CONCLUSION: 1. Marrow edema and enhancement in the olecranon. Differential diagnosis includes bone contusion with enhancement or early osteomyelitis. No significant bone destruction identified. 2. Extensive cellulitis over the posterior elbow with packing material, subcutaneous edema and probable small microabscess formation. Elbow X-Ray 04/22/18 00:00 CONCLUSION: There is prominent soft tissue swelling as well as subcutaneous emphysema posterior to the elbow concerning for infection with gas-forming organism. Prominent edema is also suspected along the posterior aspect of the arm. No underlying bone abnormality. Upper Extremity Ultrasound 04/22/18 16:56 CONCLUSION: 1. Soft tissue swelling, edema and hyperemia around the right elbow without discrete abscess. Assessment and Plan - Problem List (1) Abscess of right olecranon bursa Code(s): M71.021 - Abscess of bursa, right elbow Status: Acute Plan: His condition was discussed and the options of treatment were discussed. Surgical and continued wound care discussed. The current recommendation is to proceed with IV antibiotics and local wound care and monitor progress. Monitor. A mid level provider in my office, nurse practitioner or PA, may see this patient on a follow up basis and continue to implement the plan including: starting or adjusting medications, injections of muscle, tendons, bursa or joints, cast application, orthotic or brace application, physical therapy, further radiographic studies including X-ray, MRI, CT, ultrasound or bone scan , vascular studies, neurological studies, or other specialist consultations, and proceeding with surgical management as appropriate.
[2018-04-22] MEDS: Sod Chloride 0.9% Inj 1,000 ML IV.CONT SCH (22:39)
[2018-04-23] MEDS: Piperacil/Tazo 3.375 GM Premix 50 ML IV.SIG SCH ×5 (00:14→18:27)
[2018-04-23 02:06] LABS: Calcium 8.4 mg/dL (8.5-10.1); Carbon Dioxide 25.8 meq/L (21.0-32.0); Potassium 3.5 meq/L (3.5-5.1)
[2018-04-23 04:10] LABS: Amphetamine Screen,Urine Neg (Neg); Barbiturate Screen,Urine Neg (Neg); Cannabinoid Screen,Urine Neg (Neg); Cocaine Screen,Urine Neg (Neg)
[2018-04-23 04:13] LABS: Opiate Screen,Urine Neg (Neg)
--- NOTE | 2018-04-23 10:07 | P.PNWCN ---
Wound Care Nurse Consult Description: Wound consult ordered by for wound management ( Initiate TID damp to dry dressing changes.) Communicated with: Richard MONTERO, Recommendation: 1. Cleanse right upper extremity (elbow) with normal saline pat dry. 2. Lightly pack incision/cavity with Iodoform 1/2 inch leaving tail exposed. 3. Cover with Maxorb ll covering moist yellow slough , secure with rolled gauze/ tape change dressing daily or as needed for exudate/dislodgement. 4. Patient may need further debridement for surrounding necrotic tissue. Additional information: Patient was seen today by property underwriter for wound management of Right elbow.Patient alert and oriented x4. Dressing removed from right elbow with out difficulty. Patient has extensive erythema/induration from ~4 inches below shoulder to ~2 inches proximal of R wrist induration/erythema warm to touch.Post I&D to proximal elbow measure 0.6 x 0.2 with moderate serosanguineous purulent exudate expressed.Resident Care Spec was able to perform mechanical debridement with saline moistened gauze .Patient has 100% moist yellow necrotic tissue measuring 5.0cm x 6.0cm circumferentially to incision with black necrotic tissue with 2 puncture de paz noted just lateral to incision. Yellow/black necrotic tissue fluctuant to touch.Resident Care Spec irrigated incision/cavity with normal saline.Affected area patted dry Iodoform 1/2 inch lightly packed into wound base using ~20cm leaving tail exposed covered with Maxorb ll and secured with dry gauze/rolled gauze/tape .Dressing signed and dated.Patient asked about breakfast property underwriter followed up with Richard MONTERO breakfast tray was delivered to patient by property underwriter.no further questions or concerns upon property underwriter departure. Wound/Pressure Injury - Wound Right Elbow Wound Type: Abscess Is This a Chronic Wound: No Requested from Provider a Wound Care Consult: No (Melba MONTERO,[facility] seen 04/23) Wound Bed Appearance: Necrotic, Yellow Surrounding Tissue Appearance: Edematous, Erythema, Indurated, Weeping Surrounding Tissue Temperature: Warm Drainage Description: Purulent Drainage Amount: Moderate Drainage Odor: No Odor Dressing Status: Changed Cleansing Solution: Saline Wound Packing Type: Gauze Packing Strips Primary Dressing: maxorb ll Cover Dressing: Gauze Pads Tape Type: Paper Wound Dressing Change Date: 04/23/18
[2018-04-23] MEDS: Vancomycin Inj 1,250 MG in Sodium Chlor 0.9% Inj 250 ML IV.SIG SCH ×2 (11:05→22:25)
--- NOTE | 2018-04-23 11:51 | P.PN ---
Subjective Interval history: Follow-up visit right upper arm cellulitis status post I&D in the ED. Patient seen and examined today. Reports he is doing okay. Right upper arm continues to be swollen, pain is manageable. Continues to be on IV antibiotics. Was seen by orthopedics. Denies pain and discomfort. Denies SOB/ dyspnea. Denies chest pain, palpitations, headaches, dizziness. Denies fevers, chills, n/v/d. Denies dysuria. Physical Exam Vital signs: Vital Signs 04/22/18 12:56 04/22/18 14:16 04/22/18 14:53 Temperature 98.6 F Pulse Rate 85 76 100 H Respiratory Rate 19 18 18 Blood Pressure 141/67 H 138/79 141/95 H Pulse Oximetry 94 L 96 93 L 04/22/18 23:20 04/23/18 04:00 04/23/18 07:10 Temperature 98.7 F 98.7 F 97.8 F Pulse Rate 83 80 82 Respiratory Rate 17 17 14 Blood Pressure 152/72 H 134/69 151/79 H Pulse Oximetry 95 96 93 L Intake & Output 04/22/18 04/23/18 04/23/18 18:59 06:59 18:59 Intake Total 1150 / 1150 325 / 325 Balance 1150 / 1150 325 / 325 Weight 81.647 kg Intake: IV 350 / 350 325 / 325 Zosyn 3.375 GM Premix 50 ML @ 50 / 50 100 mls/hr IV.SIG Q6H GINO Rx#: [id number] Zosyn 4.5 GM Premix 4.5 gm In 100 / 100 100 ml @ 200 mls/hr IV.SIG STAT STA Rx#:[id number] Vancomycin Inj 1,000 MG In NS 250 / 250 Inj 250 ML @ 250 mls/hr IV.SIG STAT STA Rx#:[id number] Vancomycin Inj 1,250 MG In NS 275 / 275 Inj 250 ML @ 250 mls/hr IV.SIG Q12H GINO Rx#:[id number] Oral 800 / 800 Other: # Voids 1,200 Narrative: GENERAL: This is a well-nourished, well-developed patient, in no apparent distress. SKIN: Warm and dry HEENT: Normocephalic. Pupils equal round and reactive. Nose without bleeding. Airway patent. NECK: Trachea midline. Supple. CARDIOVASCULAR: Regular rate and rhythm without murmurs, gallops, or rubs. RESPIRATORY: Clear to auscultation. Breath sounds equal bilaterally. No wheezes , rales, or rhonchi. GASTROINTESTINAL: Abdomen soft, non-tender, nondistended. Bowel Sounds normoactive x4. MUSCULOSKELETAL: Extremities without clubbing, cyanosis. Right upper extremity edema, erythema elbow area wound draining serosanguineous. Dressing soiled intact. NEUROLOGICAL: Awake and alert. Oriented to time, place, person. No focal neuro deficit. Moves all extremities. Normal speech. Results - Labs CBC & Chem 7: 04/22/18 09:10 04/23/18 01:36 Laboratory Results - last 24 hr 04/22/18 04/23/18 04/23/18 09:10 01:36 01:36 ESR 68 H Sodium 135 L Potassium 3.5 Chloride 101 Carbon Dioxide 25.8 Anion Gap 8 BUN 16 Creatinine 0.89 Estimated GFR 86 L Random Glucose 119 H Calcium 8.4 L C-Reactive Protein 17.00 H Urine Opiates Screen Ur Barbiturates Screen Ur Amphetamines Screen U Benzodiazepines Scrn Urine Cocaine Screen U Cannabinoids Screen 04/23/18 03:30 ESR Sodium Potassium Chloride Carbon Dioxide Anion Gap BUN Creatinine Estimated GFR Random Glucose Calcium C-Reactive Protein Urine Opiates Screen Neg Ur Barbiturates Screen Neg Ur Amphetamines Screen Neg U Benzodiazepines Scrn Pos H Urine Cocaine Screen Neg U Cannabinoids Screen Neg Microbiology 04/22/18 09:10 Blood - Peripheral Aerobic Blood Culture - Preliminary No growth in 1 day 04/22/18 09:10 Blood - Peripheral Anaerobic Blood Culture - Preliminary No growth in 1 day 04/22/18 09:30 Blood - Peripheral Aerobic Blood Culture - Preliminary No growth in 1 day 04/22/18 09:30 Blood - Peripheral Anaerobic Blood Culture - Preliminary No growth in 1 day 04/22/18 09:42 Abscess - Elbow Gram Stain - Final - Imaging Impressions Elbow MRI 04/22/18 00:00 CONCLUSION: 1. Marrow edema and enhancement in the olecranon. Differential diagnosis includes bone contusion with enhancement or early osteomyelitis. No significant bone destruction identified. 2. Extensive cellulitis over the posterior elbow with packing material, subcutaneous edema and probable small microabscess formation. Elbow X-Ray 04/22/18 00:00 CONCLUSION: There is prominent soft tissue swelling as well as subcutaneous emphysema posterior to the elbow concerning for infection with gas-forming organism. Prominent edema is also suspected along the posterior aspect of the arm. No underlying bone abnormality. Upper Extremity Ultrasound 04/22/18 16:56 CONCLUSION: 1. Soft tissue swelling, edema and hyperemia around the right elbow without discrete abscess. Assessment and Plan - Plan 62-year-old white male being admitted for R arm abscess. Extensive RUE Abscess -Secondary to traumatic injury, possible inoculation -continue vancomycin and Zosyn -blood cultures and wound culture pending -Urine drug screen positive for benzo -US ordered showed soft tissue swelling, edema and hyperemia around the right elbow without discrete abscess. -Evaluated by orthopedic surgeon amended IV antibiotics for now. -ESR and CRP ordered Hyponatremia -likely 2/2 dehydration -IVFs, AM BMP SCDs, no lovenox given possible procedures Code Status: Full Code Discussed Condition With: Patient, nursing Discharge Planning: Plan to DC home when clinically improved.
[2018-04-23] MEDS: Sod Chloride 0.9% Inj 1,000 ML IV.CONT SCH ×2 (18:22)
[2018-04-23] MEDS ORDERED: Pharmacy Ordered Lab Info OTHER ONE (20:45)
[2018-04-24] MEDS: Piperacil/Tazo 3.375 GM Premix 50 ML IV.SIG SCH ×3 (01:36→12:16)
[2018-04-24 03:57] LABS: Baso # (Auto) 0.1 th/mm3 (0.0-0.2); Eos # (Auto) 0.1 th/mm3 (0.0-0.4); Eos % (Auto) 2.3 % (0.0-4.0); Hematocrit 34.9 % (39.0-51.0); Lymph # (Auto) 1.2 th/mm3 (1.0-4.8); Lymph % (Auto) 21.4 % (9.0-44.0); Mean Corpuscular HGB Conc 34.2 % (32.0-36.0); Mean Corpuscular Hemoglobin 33.2 pg (27.0-34.0); Mean Corpuscular Volume 97.1 fL (80.0-100.0); Mono # (Auto) 0.8 th/mm3 (0.0-0.9); Mono % (Auto) 13.4 % (0.0-8.0); Neut # (Auto) 3.5 th/mm3 (1.8-7.7); Neut % (Auto) 61.9 % (16.0-70.0); Platelet Count 259 th/mm3 (150-450); Red Cell Distribution Width 15.4 % (11.6-17.2); White Blood Count 5.7 th/mm3 (4.0-11.0)
[2018-04-24 04:14] LABS: Anion Gap 9 meq/L (5-15); Blood Urea Nitrogen 12 mg/dL (7-18); Carbon Dioxide 25.5 meq/L (21.0-32.0); Chloride 104 meq/L (98-107); Glomerular Filtration Rate Greater Than 89 mL/min (>89); Glucose,Random 116 mg/dL (74-106); Potassium 3.6 meq/L (3.5-5.1); Sodium 138 meq/L (136-145)
[2018-04-24] MEDS: Sod Chloride 0.9% Inj 1,000 ML IV.CONT SCH (06:10)
[2018-04-24] MEDS: Vancomycin Inj 1,250 MG in Sodium Chlor 0.9% Inj 250 ML IV.SIG SCH (08:19)
--- NOTE | 2018-04-24 10:09 | P.PNOP ---
Subjective Interval history: Elbow feels like it is improving Physical Exam Vital signs: Vital Signs 04/23/18 12:00 04/23/18 16:00 04/23/18 20:00 Temperature 98.0 F 98.1 F 98.2 F Pulse Rate 69 72 74 Respiratory Rate 16 16 18 Blood Pressure 127/67 134/74 148/78 H Pulse Oximetry 93 L 94 L 95 04/23/18 23:37 04/24/18 01:12 04/24/18 03:56 Temperature 98 F 98.7 F Pulse Rate 74 72 Respiratory Rate 16 16 18 Blood Pressure 139/76 157/84 H Pulse Oximetry 95 95 04/24/18 07:28 Temperature 98.3 F Pulse Rate 68 Respiratory Rate 16 Blood Pressure 156/76 H Pulse Oximetry 94 L Intake & Output 04/23/18 04/24/18 04/24/18 18:59 06:59 18:59 Intake Total 1275 / 1275 50 / 50 Output Total 900 / 900 Balance 375 / 375 50 / 50 Intake: IV 375 / 375 50 / 50 Zosyn 3.375 GM Premix 50 ML @ 100 / 100 50 / 50 100 mls/hr IV.SIG Q6H GINO Rx#: [id number] Vancomycin Inj 1,250 MG In NS 275 / 275 Inj 250 ML @ 250 mls/hr IV.SIG Q12H GINO Rx#:[id number] Oral 900 / 900 Output: Urine 900 / 900 - Detailed Upper Extremity Exam Comments: Left upper chin examination benign. Right upper extremity examination reveals significantly improved. Decompression of the original abscess at the corner of the elbow in the olecranon region. There remains a 4 x 5 cm region of erythema. There is Mild/moderate residual fluctuance, 3 cm distal to the original packed wounds where there is slight purulent drainage upon. This area is actively drained. The dressing is really reapplied. Elbow range of motion is good. Mild edematous changes throughout the extremity, improving. Wrist, hand motion good. Distal neurologic examination intact. Distal vascular examination intact. Distal integumentary examination intact. Results - Labs CBC & Chem 7: 04/24/18 03:33 04/24/18 03:33 Laboratory Results - last 24 hr 04/23/18 04/24/18 04/24/18 20:45 03:33 03:33 WBC 5.7 RBC 3.60 L Hgb 12.0 L Hct 34.9 L MCV 97.1 MCH 33.2 MCHC 34.2 RDW 15.4 Plt Count 259 D MPV 8.0 Neut % (Auto) 61.9 Lymph % (Auto) 21.4 [place] % (Auto) 13.4 H Eos % (Auto) 2.3 Baso % (Auto) 1.0 Neut # (Auto) 3.5 Lymph # (Auto) 1.2 [place] # (Auto) 0.8 Eos # (Auto) 0.1 Baso # (Auto) 0.1 WBC Differential . Differential Comment Auto diff final Sodium 138 Potassium 3.6 Chloride 104 Carbon Dioxide 25.5 Anion Gap 9 BUN 12 Creatinine 0.75 Estimated GFR Greater than 89 Random Glucose 116 H Calcium 8.0 L Vancomycin Trough 10.4 H Microbiology 04/22/18 09:42 Abscess - Elbow Gram Stain - Final 04/22/18 09:42 Abscess - Elbow Wound Culture - Final Staphylococcus aureus Group A beta (Strep pyogenes) 04/22/18 09:10 Blood - Peripheral Aerobic Blood Culture - Preliminary No growth in 1 day 04/22/18 09:10 Blood - Peripheral Anaerobic Blood Culture - Preliminary No growth in 1 day 04/22/18 09:30 Blood - Peripheral Aerobic Blood Culture - Preliminary No growth in 1 day 04/22/18 09:30 Blood - Peripheral Anaerobic Blood Culture - Preliminary No growth in 1 day Assessment and Plan - Problem List (1) Abscess of right olecranon bursa Code(s): M71.021 - Abscess of bursa, right elbow Status: Acute Plan: His condition was discussed and the options of treatment were discussed. Surgical and continued wound care discussed. He did have a small area with some continued purulent drainage distal to the original site. The original site shows significant improvement. His overall swelling in his arm appears to be improving. His elbow range of motion appears very good. There does not appear to be spread of the infection into the elbow joint. The MRI scan did show some edematous change within the ulna. It is possible that this is secondary to the original contusion when he fell about 1 week ago. There remains some risk of spread of infection into the bone. There is the possibility that infection/early osteomyelitis has recurred. Clinically, he does appear to be improving. The current recommendation is to proceed with IV antibiotics and local wound care and monitor progress. I will be off on Saturday and Friday. If needed, my partner is aware of the patient's condition. We will plan to reevaluate on Friday. A mid level provider in my office, nurse practitioner or PA, may see this patient on a follow up basis and continue to implement the plan including: starting or adjusting medications, injections of muscle, tendons, bursa or joints, cast application, orthotic or brace application, physical therapy, further radiographic studies including X-ray, MRI, CT, ultrasound or bone scan , vascular studies, neurological studies, or other specialist consultations, and proceeding with surgical management as appropriate.
[2018-04-24] MEDS: Acetaminophen 325 MG Tablet PO PRN (10:16)
--- NOTE | 2018-04-24 10:31 | P.PN ---
Subjective Interval history: Follow-up visit right upper arm cellulitis status post I&D in the ED. Patient seen and examined today. Reports he is doing okay. Right upper arm continues to be swollen, draining, pain is manageable. Denies SOB/ dyspnea. Denies chest pain, palpitations, headaches, dizziness. Denies fevers, chills, n/v/d. Denies dysuria. Physical Exam Vital signs: Vital Signs 04/23/18 12:00 04/23/18 16:00 04/23/18 20:00 Temperature 98.0 F 98.1 F 98.2 F Pulse Rate 69 72 74 Respiratory Rate 16 16 18 Blood Pressure 127/67 134/74 148/78 H Pulse Oximetry 93 L 94 L 95 04/23/18 23:37 04/24/18 01:12 04/24/18 03:56 Temperature 98 F 98.7 F Pulse Rate 74 72 Respiratory Rate 16 16 18 Blood Pressure 139/76 157/84 H Pulse Oximetry 95 95 04/24/18 07:28 Temperature 98.3 F Pulse Rate 68 Respiratory Rate 16 Blood Pressure 156/76 H Pulse Oximetry 94 L Intake & Output 04/23/18 04/24/18 04/24/18 18:59 06:59 18:59 Intake Total 1275 / 1275 50 / 50 Output Total 900 / 900 Balance 375 / 375 50 / 50 Intake: IV 375 / 375 50 / 50 Zosyn 3.375 GM Premix 50 ML @ 100 / 100 50 / 50 100 mls/hr IV.SIG Q6H GINO Rx#: [id number] Vancomycin Inj 1,250 MG In NS 275 / 275 Inj 250 ML @ 250 mls/hr IV.SIG Q12H GINO Rx#:[id number] Oral 900 / 900 Output: Urine 900 / 900 Narrative: GENERAL: This is a well-nourished, well-developed patient, in no apparent distress. SKIN: Warm and dry HEENT: Normocephalic. Pupils equal round and reactive. Nose without bleeding. Airway patent. NECK: Trachea midline. Supple. CARDIOVASCULAR: Regular rate and rhythm without murmurs, gallops, or rubs. RESPIRATORY: Clear to auscultation. Breath sounds equal bilaterally. No wheezes , rales, or rhonchi. GASTROINTESTINAL: Abdomen soft, non-tender, nondistended. Bowel Sounds normoactive x4. MUSCULOSKELETAL: Extremities without clubbing, cyanosis. Right upper extremity edema, erythema elbow area wound draining serosanguineous. Elbow wound deep and tunneled, packing in place. NEUROLOGICAL: Awake and alert. Oriented to time, place, person. No focal neuro deficit. Moves all extremities. Normal speech. Results - Labs CBC & Chem 7: 04/24/18 03:33 04/24/18 03:33 Laboratory Results - last 24 hr 04/23/18 04/24/18 04/24/18 20:45 03:33 03:33 WBC 5.7 RBC 3.60 L Hgb 12.0 L Hct 34.9 L MCV 97.1 MCH 33.2 MCHC 34.2 RDW 15.4 Plt Count 259 D MPV 8.0 Neut % (Auto) 61.9 Lymph % (Auto) 21.4 [place] % (Auto) 13.4 H Eos % (Auto) 2.3 Baso % (Auto) 1.0 Neut # (Auto) 3.5 Lymph # (Auto) 1.2 [place] # (Auto) 0.8 Eos # (Auto) 0.1 Baso # (Auto) 0.1 WBC Differential . Differential Comment Auto diff final Sodium 138 Potassium 3.6 Chloride 104 Carbon Dioxide 25.5 Anion Gap 9 BUN 12 Creatinine 0.75 Estimated GFR Greater than 89 Random Glucose 116 H Calcium 8.0 L Vancomycin Trough 10.4 H Microbiology 04/22/18 09:42 Abscess - Elbow Gram Stain - Final 04/22/18 09:42 Abscess - Elbow Wound Culture - Final Staphylococcus aureus Group A beta (Strep pyogenes) 04/22/18 09:10 Blood - Peripheral Aerobic Blood Culture - Preliminary No growth in 1 day 04/22/18 09:10 Blood - Peripheral Anaerobic Blood Culture - Preliminary No growth in 1 day 04/22/18 09:30 Blood - Peripheral Aerobic Blood Culture - Preliminary No growth in 1 day 04/22/18 09:30 Blood - Peripheral Anaerobic Blood Culture - Preliminary No growth in 1 day Assessment and Plan - Assessment (1) Abscess of right olecranon bursa Code(s): M71.021 - Abscess of bursa, right elbow Status: Acute - Plan 62-year-old white male being admitted for R arm abscess. Extensive RUE Abscess -Secondary to traumatic injury, possible inoculation -continue vancomycin and Zosyn -blood cultures and wound culture pending -Urine drug screen positive for benzo -US ordered showed soft tissue swelling, edema and hyperemia around the right elbow without discrete abscess. -Evaluated by orthopedic surgeon amended IV antibiotics for now. No procedures -Leukocytosis improved 11.3 --> 5.7 -ESR 68, CRP 17 Hyponatremia -likely 2/2 dehydration -IVF given -Improved DVT Prop Lovenox Code Status: Full Code Discussed Condition With: DC when clinically improved Discharge Planning: Plan to DC home when clinically improved.
[2018-04-25 07:41] LABS: Baso # (Auto) 0.1 th/mm3 (0.0-0.2); Eos # (Auto) 0.2 th/mm3 (0.0-0.4); Eos % (Auto) 3.5 % (0.0-4.0); Hematocrit 36.3 % (39.0-51.0); Hemoglobin 12.6 gm/dL (13.0-17.0); Lymph # (Auto) 1.4 th/mm3 (1.0-4.8); Lymph % (Auto) 23.5 % (9.0-44.0); Mean Corpuscular HGB Conc 34.7 % (32.0-36.0); Mean Corpuscular Hemoglobin 33.6 pg (27.0-34.0); Mean Corpuscular Volume 96.9 fL (80.0-100.0); Mean Platelet Volume 7.8 fL (7.0-11.0); Mono # (Auto) 0.7 th/mm3 (0.0-0.9); Mono % (Auto) 11.6 % (0.0-8.0); Neut # (Auto) 3.7 th/mm3 (1.8-7.7); Neut % (Auto) 60.4 % (16.0-70.0); Platelet Count 331 th/mm3 (150-450); Red Blood Count 3.75 mil/mm3 (4.50-5.90); Red Cell Distribution Width 15.7 % (11.6-17.2); White Blood Count 6.1 th/mm3 (4.0-11.0)
[2018-04-25 08:03] LABS: Anion Gap 9 meq/L (5-15); Blood Urea Nitrogen 9 mg/dL (7-18); Calcium 8.4 mg/dL (8.5-10.1); Chloride 101 meq/L (98-107); Glomerular Filtration Rate Greater Than 89 mL/min (>89); Glucose,Random 96 mg/dL (74-106); Potassium 3.9 meq/L (3.5-5.1); Sodium 135 meq/L (136-145)
[2018-04-25] MEDS ORDERED: Pharmacy Ordered Lab Info OTHER ONE (08:45)
--- NOTE | 2018-04-25 13:05 | P.PNIM ---
Subjective Interval history: Able to bend elbow more, but still swollen. No fever or chills. Arm redness seems to be lessening. Physical Exam Vital signs: Vital Signs 04/24/18 16:00 04/24/18 19:53 04/24/18 23:33 Temperature 98.3 F 98.3 F 98.3 F Pulse Rate 61 67 66 Respiratory Rate 18 16 17 Blood Pressure 145/81 H 183/90 H 176/89 H Pulse Oximetry 96 98 95 04/25/18 03:45 04/25/18 08:01 04/25/18 11:18 Temperature 98.0 F 97.8 F 97.4 F L Pulse Rate 60 77 61 Respiratory Rate 16 18 18 Blood Pressure 162/79 H 106/72 129/72 Pulse Oximetry 96 94 L 94 L Intake & Output 04/24/18 04/25/18 04/25/18 18:59 06:59 18:59 Intake Total 1425 / 1425 Balance 1425 / 1425 Intake: IV 1425 / 1425 NS Inj 1,000 ML @ 84 mls/hr IV. 1000 / 1000 CONT .[id number] GINO Rx#:[id number] Zosyn 3.375 GM Premix 50 ML @ 50 / 50 100 mls/hr IV.SIG Q6H GINO Rx#: [id number] Vancomycin Inj 1,250 MG In NS 275 / 275 Inj 250 ML @ 250 mls/hr IV.SIG Q12H GINO Rx#:[id number] Ancef Inj 1,000 MG In NS Inj 100 / 100 100 ML @ 200 mls/hr IV.SIG Q8H GINO Rx#:[id number] Narrative: GENERAL: Well-developed well-nourished. In no acute distress. SKIN: Warm and dry. Right arm as below. HEENT: Normocephalic. Pupils equal and round. Mucous membranes pink and moist. CARDIOVASCULAR: Regular rate and rhythm. No murmur appreciated. RESPIRATORY: No accessory muscle use. Clear to auscultation. Breath sounds equal bilaterally. GASTROINTESTINAL: Abdomen soft, non-tender, nondistended. Bowel sounds x4. MUSCULOSKELETAL: Right elbow with clean dressing. Erythema and warmth above and below the elbow, however receding from previous marking. NEUROLOGICAL: Awake and alert. Moves upper and lower extremities spontaneously. Normal speech. PSYCHIATRIC: Appropriate mood and affect; insight and judgment normal. Results - Labs CBC & Chem 7: 04/25/18 07:12 04/25/18 07:12 Laboratory Results - last 24 hr 04/25/18 04/25/18 07:12 07:12 WBC 6.1 RBC 3.75 L Hgb 12.6 L Hct 36.3 L MCV 96.9 MCH 33.6 MCHC 34.7 RDW 15.7 Plt Count 331 MPV 7.8 Neut % (Auto) 60.4 Lymph % (Auto) 23.5 [place] % (Auto) 11.6 H Eos % (Auto) 3.5 Baso % (Auto) 1.0 Neut # (Auto) 3.7 Lymph # (Auto) 1.4 [place] # (Auto) 0.7 Eos # (Auto) 0.2 Baso # (Auto) 0.1 WBC Differential . Differential Comment Auto diff final Sodium 135 L Potassium 3.9 Chloride 101 Carbon Dioxide 25.0 Anion Gap 9 BUN 9 Creatinine 0.72 Estimated GFR Greater than 89 Random Glucose 96 Calcium 8.4 L Microbiology 04/22/18 09:10 Blood - Peripheral Aerobic Blood Culture - Preliminary No growth in 3 days 04/22/18 09:10 Blood - Peripheral Anaerobic Blood Culture - Preliminary No growth in 3 days 04/22/18 09:30 Blood - Peripheral Aerobic Blood Culture - Preliminary No growth in 3 days 04/22/18 09:30 Blood - Peripheral Anaerobic Blood Culture - Preliminary No growth in 3 days Assessment and Plan - Plan 62-year-old white male being admitted for R arm abscess. Extensive RUE Abscess -Secondary to traumatic injury, possible inoculation -Wound culture growing staph aureus and group A beta strep -continue IV cefepime -Urine drug screen positive for benzo -US ordered showed soft tissue swelling, edema and hyperemia around the right elbow without discrete abscess. -Evaluated by orthopedic surgeon who recommended IV antibiotics for now. No procedures. Will reevaluate on Friday. -Leukocytosis improved 11.3 --> 6 DVT Prop Lovenox Discharge Planning: Continue IV antibiotics and follow orthopedic recommendations on Friday. Suspect discharge on oral antibiotics Friday.
[2018-04-25] MEDS: Acetaminophen 325 MG Tablet PO PRN ×2 (14:24→18:28)
[2018-04-26] MEDS: Acetaminophen 325 MG Tablet PO PRN ×3 (05:56→15:34)
--- NOTE | 2018-04-26 08:14 | P.PN ---
Subjective Interval history: Pt seen and examined for f/u RUE/elbow cellulitis and abscess. Afebrile, BPs running high. Patient denies prior diagnosis of hypertension. No acute complaints today other than some tenderness around his R elbow and upper arm when he is moving it. He notes, however, that his mobility is greatly improved from the past couple days. No fever or chills. He denies CP, SOB, abdominal pain , N/V. Physical Exam Vital signs: Vital Signs 04/25/18 11:18 04/25/18 16:00 04/25/18 20:29 Temperature 97.4 F L 97.8 F 97.5 F L Pulse Rate 61 66 59 L Respiratory Rate 18 17 17 Blood Pressure 129/72 154/83 H 145/75 H Pulse Oximetry 94 L 94 L 98 04/26/18 00:19 Temperature 97.3 F L Pulse Rate 66 Respiratory Rate 18 Blood Pressure 131/74 Pulse Oximetry 96 Intake & Output 04/25/18 04/26/18 04/26/18 18:59 06:59 18:59 Intake Total 200 / 200 780 / 780 Balance 200 / 200 780 / 780 Weight 81.6 kg Intake: IV 200 / 200 Ancef Inj 1,000 MG In NS Inj 200 / 200 100 ML @ 200 mls/hr IV.SIG Q8H GINO Rx#:[id number] Oral 780 / 780 Other: # Voids 3 Narrative: GENERAL: WN, WD male resting in bed in NAD. SKIN: Warm and dry. HEART: RRR no m/r/g. LUNGS: CTAB without wheezes or crackles. ABDOMEN: +BS, soft, NT, ND. EXTREMITIES: RUE with dry dressing around elbow. There is some induration proximal to the elbow with no appreciated fluctuance. Able to flex/extend at the elbow. NEURO: Awake and alert. PSYCH: Appropriate mood and affect. Results - Labs CBC & Chem 7: 04/25/18 07:12 04/25/18 07:12 Microbiology 04/22/18 09:10 Blood - Peripheral Aerobic Blood Culture - Preliminary No growth in 3 days 04/22/18 09:10 Blood - Peripheral Anaerobic Blood Culture - Preliminary No growth in 3 days 04/22/18 09:30 Blood - Peripheral Aerobic Blood Culture - Preliminary No growth in 3 days 04/22/18 09:30 Blood - Peripheral Anaerobic Blood Culture - Preliminary No growth in 3 days Assessment and Plan - Assessment (1) Cellulitis of right upper extremity Code(s): L03.113 - Cellulitis of right upper limb Status: Acute (2) Abscess of right olecranon bursa Code(s): M71.021 - Abscess of bursa, right elbow Status: Acute - Plan 62 incarcerated YOWM with no significant medical history admitted 04/22 for post- traumatic RUE abscess and cellulitis. 1. RUE abscess and cellulitis - Secondary to trauma after falling in the custodial bathroom - S/P bedside I&D in the ED with minimal purulent output - U/S showing soft tissue swelling, edema, and hyperemia around the R elbow without discrete abscess - ESR and CRP elevated - Leukocytosis resolved - Blood cultures from 04/22 NGTD - Abscess culture growing Staph and group A strep - Ortho following, would like continued IV antibiotics over the weekend and will re-evaluate Friday - IV antibiotics change to Cefazolin yesterday (vanco and Zosyn D/C'd) - Anticipate changing to a PO abx tomorrow (e.g. Clinda) - Pain control - Wound care 2. HTN - New diagnosis - Unlikely secondary to pain as patient has been resting comfortably - Start amlodipine - Clonidine PRN - Continue to monitor 2. UDS + for benzo - Counseled DVT prophylaxis: Lovenox Code Status: Full Discussed Condition With: The patient Discharge Planning: Anticipate D/C tomorrow
[2018-04-26] MEDS ORDERED: Bisacodyl 10 MG Supp RECTAL PRN (13:08)
[2018-04-26] MEDS ORDERED: Ketorolac Inj 30 MG/ML (IVP) Vial IV.PUSH PRN (13:10)
[2018-04-26] MEDS: Senna/Docusate Sodium 8.6/50 MG Tablet PO SCH (20:50)
[2018-04-27 03:14] LABS: Hematocrit 39.2 % (39.0-51.0); Hemoglobin 13.5 gm/dL (13.0-17.0); Mean Corpuscular HGB Conc 34.5 % (32.0-36.0); Mean Corpuscular Hemoglobin 33.4 pg (27.0-34.0); Mean Corpuscular Volume 97.1 fL (80.0-100.0); Mean Platelet Volume 7.6 fL (7.0-11.0); Platelet Count 401 th/mm3 (150-450); Red Blood Count 4.04 mil/mm3 (4.50-5.90); Red Cell Distribution Width 15.5 % (11.6-17.2); White Blood Count 6.2 th/mm3 (4.0-11.0)
[2018-04-27 03:23] LABS: Anion Gap 6 meq/L (5-15); Blood Urea Nitrogen 9 mg/dL (7-18); Calcium 8.8 mg/dL (8.5-10.1); Carbon Dioxide 28.8 meq/L (21.0-32.0); Chloride 103 meq/L (98-107); Glomerular Filtration Rate Greater Than 89 mL/min (>89); Glucose,Random 89 mg/dL (74-106); Potassium 4.1 meq/L (3.5-5.1); Sodium 138 meq/L (136-145)
--- NOTE | 2018-04-27 08:01 | P.PNOP ---
Subjective Interval history: Elbow continues to improve Physical Exam Vital signs: Vital Signs 04/26/18 08:00 04/26/18 12:00 04/26/18 16:00 Temperature 97.6 F 98.0 F 98.0 F Pulse Rate 60 77 67 Respiratory Rate 17 17 17 Blood Pressure 170/84 H 140/76 146/78 H Pulse Oximetry 95 97 98 04/26/18 20:16 04/27/18 00:17 04/27/18 04:29 Temperature 97.5 F L 97.8 F 98.0 F Pulse Rate 61 68 70 Respiratory Rate 18 18 18 Blood Pressure 151/80 H 161/89 H 160/80 H Pulse Oximetry 96 97 96 Intake & Output 04/26/18 04/27/18 04/27/18 18:59 06:59 18:59 Intake Total 1280 / 1280 780 / 780 Output Total 700 / 700 Balance 1280 / 1280 80 / 80 Weight 81.6 kg Intake: IV 200 / 200 100 / 100 Ancef Inj 1,000 MG In NS Inj 200 / 200 100 / 100 100 ML @ 200 mls/hr IV.SIG Q8H GINO Rx#:[id number] Oral 1080 / 1080 680 / 680 Output: Urine 700 / 700 Other: # Voids 12 # Bowel Movements 1 - Constitutional no acute distress - Routine HEENT Exam Head: Present: normocephalic - Routine Extremities Exam Comments: Right upper extremity 1x2 cm wound and a 0.5x0.5 cm wound with good granulation tissue Erythema minimal at olecranon only good elbow range of motion mild olecranon and surrounding swelling neuro exam intact vascular exam intact Results - Labs CBC & Chem 7: 04/27/18 03:00 04/27/18 03:00 Laboratory Results - last 24 hr 04/27/18 04/27/18 03:00 03:00 WBC 6.2 RBC 4.04 L Hgb 13.5 Hct 39.2 MCV 97.1 MCH 33.4 MCHC 34.5 RDW 15.5 Plt Count 401 MPV 7.6 Sodium 138 Potassium 4.1 Chloride 103 Carbon Dioxide 28.8 Anion Gap 6 BUN 9 Creatinine 0.81 Estimated GFR Greater than 89 Random Glucose 89 Calcium 8.8 Microbiology 04/22/18 09:10 Blood - Peripheral Aerobic Blood Culture - Preliminary No growth in 4 days 04/22/18 09:10 Blood - Peripheral Anaerobic Blood Culture - Preliminary No growth in 4 days 04/22/18 09:30 Blood - Peripheral Aerobic Blood Culture - Preliminary No growth in 4 days 04/22/18 09:30 Blood - Peripheral Anaerobic Blood Culture - Preliminary No growth in 4 days Assessment and Plan - Problem List (1) Abscess of right olecranon bursa Code(s): M71.021 - Abscess of bursa, right elbow Status: Deleted Plan: His condition was discussed and the options of treatment were discussed. Surgical and continued wound care discussed. He did have a small area with some continued purulent drainage distal to the original site. The original site shows significant improvement. His overall swelling in his arm appears to be improving. His elbow range of motion appears very good. There does not appear to be spread of the infection into the elbow joint. The MRI scan did show some edematous change within the ulna. It is possible that this is secondary to the original contusion when he fell about 1 week ago. There remains some risk of spread of infection into the bone. There is the possibility that infection/early osteomyelitis has recurred. Clinically, he does appear to be improving. The current recommendation is to proceed with IV antibiotics and local wound care and monitor progress. Recommend which to TID wet to dry dressing changes. Monitor A mid level provider in my office, nurse practitioner or PA, may see this patient on a follow up basis and continue to implement the plan including: starting or adjusting medications, injections of muscle, tendons, bursa or joints, cast application, orthotic or brace application, physical therapy, further radiographic studies including X-ray, MRI, CT, ultrasound or bone scan , vascular studies, neurological studies, or other specialist consultations, and proceeding with surgical management as appropriate.
--- NOTE | 2018-04-27 09:42 | P.PN ---
Subjective Interval history: Patient seen and examined for follow-up of right arm/elbow cellulitis and abscess. AFVSS except for elevated BPs. Patient reports to take lisinopril and amlodipine in the past he denies any chest pain, headache, shortness of breath, or visual changes. He states pain and mobility of his right arm are improving. It is still draining and getting through the dressings. He also has an old, open wound on his left palm from about 5 days ago when he fell in the river and his landed on an oyster bed. He denies any drainage or significant pain from the site. Physical Exam Vital signs: Vital Signs 04/26/18 12:00 04/26/18 16:00 04/26/18 20:16 Temperature 98.0 F 98.0 F 97.5 F L Pulse Rate 77 67 61 Respiratory Rate 17 17 18 Blood Pressure 140/76 146/78 H 151/80 H Pulse Oximetry 97 98 96 04/27/18 00:17 04/27/18 04:29 Temperature 97.8 F 98.0 F Pulse Rate 68 70 Respiratory Rate 18 18 Blood Pressure 161/89 H 160/80 H Pulse Oximetry 97 96 Intake & Output 04/26/18 04/27/18 04/27/18 18:59 06:59 18:59 Intake Total 1280 / 1280 780 / 780 Output Total 700 / 700 Balance 1280 / 1280 80 / 80 Weight 81.6 kg Intake: IV 200 / 200 100 / 100 Ancef Inj 1,000 MG In NS Inj 200 / 200 100 / 100 100 ML @ 200 mls/hr IV.SIG Q8H GINO Rx#:[id number] Oral 1080 / 1080 680 / 680 Output: Urine 700 / 700 Other: # Voids 12 # Bowel Movements 1 Narrative: GENERAL: WN, WD male resting in bed in NAD. SKIN: Warm and dry. HEART: RRR no m/r/g. LUNGS: CTAB without wheezes or crackles. ABDOMEN: +BS, soft, NT, ND. EXTREMITIES: RUE with dry dressing around elbow. There is some induration proximal to the elbow with no appreciated fluctuance. Able to flex/extend at the elbow. Left palm with approximately 4 cm laceration that is still partially open with some crusting. There is no surrounding erythema or active drainage. NEURO: Awake and alert. PSYCH: Appropriate mood and affect. Results - Labs CBC & Chem 7: 04/27/18 03:00 04/27/18 03:00 Laboratory Results - last 24 hr 04/27/18 04/27/18 03:00 03:00 WBC 6.2 RBC 4.04 L Hgb 13.5 Hct 39.2 MCV 97.1 MCH 33.4 MCHC 34.5 RDW 15.5 Plt Count 401 MPV 7.6 Sodium 138 Potassium 4.1 Chloride 103 Carbon Dioxide 28.8 Anion Gap 6 BUN 9 Creatinine 0.81 Estimated GFR Greater than 89 Random Glucose 89 Calcium 8.8 Microbiology 04/22/18 09:10 Blood - Peripheral Aerobic Blood Culture - Preliminary No growth in 4 days 04/22/18 09:10 Blood - Peripheral Anaerobic Blood Culture - Preliminary No growth in 4 days 04/22/18 09:30 Blood - Peripheral Aerobic Blood Culture - Preliminary No growth in 4 days 04/22/18 09:30 Blood - Peripheral Anaerobic Blood Culture - Preliminary No growth in 4 days Assessment and Plan - Assessment (1) Cellulitis of right upper extremity Code(s): L03.113 - Cellulitis of right upper limb Status: Acute (2) Abscess of right olecranon bursa Code(s): M71.021 - Abscess of bursa, right elbow Status: Acute - Plan 62 incarcerated YOWM with no significant medical history admitted 04/22 for post- traumatic RUE abscess and cellulitis. 1. RUE abscess and cellulitis - Secondary to trauma after falling in the retirement bathroom - S/P bedside I&D in the ED with minimal purulent output - U/S showing soft tissue swelling, edema, and hyperemia around the R elbow without discrete abscess - ESR and CRP elevated - Leukocytosis resolved - Blood cultures from 04/22 NGTD - Abscess culture growing Staph and group A strep - Ortho following, would like continued IV antibiotics - Continue IV cefazolin - Pain control - Wound care 2. HTN - Amlodipine started this morning - Clonidine PRN - Continue to monitor 3. UDS + for benzo - Counseled 4. Left palm laceration - Partially healed but still open - Consult wound care nurse DVT prophylaxis: Lovenox Discharge Planning: When cleared by ortho, possibly in next day or so
[2018-04-27] MEDS: amLODIPine 5 MG Tablet PO SCH (10:34)
[2018-04-27] MEDS: Senna/Docusate Sodium 8.6/50 MG Tablet PO SCH ×2 (10:34→20:48)
[2018-04-28] MEDS: Senna/Docusate Sodium 8.6/50 MG Tablet PO SCH ×2 (09:31→21:24)
[2018-04-28] MEDS: amLODIPine 5 MG Tablet PO SCH (09:33)
--- NOTE | 2018-04-28 11:07 | P.PN ---
Subjective Interval history: Pt seen and examined. AFVSS. BPs improved. No acute events overnight. Pt reports continued discomfort when flexing the R elbow but otherwise his pain is improving. Not as much drainage. Denies fever or chills. Hoping to be discharged soon. Physical Exam Vital signs: Vital Signs 04/27/18 12:00 04/27/18 16:00 04/27/18 20:00 Temperature 98.2 F 98.2 F 97.6 F Pulse Rate 68 63 68 Respiratory Rate 16 16 18 Blood Pressure 121/70 131/76 168/84 H Pulse Oximetry 95 96 96 04/28/18 08:00 Temperature 98.1 F Pulse Rate Respiratory Rate 18 Blood Pressure 130/78 Pulse Oximetry 93 L Intake & Output 04/27/18 04/28/18 04/28/18 18:59 06:59 18:59 Intake Total 960 / 960 300 / 300 Balance 960 / 960 300 / 300 Intake: IV 300 / 300 Ancef Inj 1,000 MG In NS Inj 300 / 300 100 ML @ 200 mls/hr IV.SIG Q8H GINO Rx#:[id number] Oral 960 / 960 Other: # Voids 5 # Bowel Movements 1 Narrative: GENERAL: WN, WD male resting in bed in NAD. SKIN: Warm and dry. HEART: RRR no m/r/g. LUNGS: CTAB without wheezes or crackles. ABDOMEN: +BS, soft, NT, ND. EXTREMITIES: RUE with dry dressing around elbow. There is some induration proximal to the elbow with no appreciated fluctuance. Able to flex/extend at the elbow. Left palm with approximately 4 cm laceration that is still partially open with some crusting. There is no surrounding erythema or active drainage. NEURO: Awake and alert. PSYCH: Appropriate mood and affect. Results - Labs CBC & Chem 7: 04/27/18 03:00 04/27/18 03:00 Microbiology 04/22/18 09:10 Blood - Peripheral Aerobic Blood Culture - Final No growth in 5 days 04/22/18 09:10 Blood - Peripheral Anaerobic Blood Culture - Final No growth in 5 days 04/22/18 09:30 Blood - Peripheral Aerobic Blood Culture - Final No growth in 5 days 04/22/18 09:30 Blood - Peripheral Anaerobic Blood Culture - Final No growth in 5 days Assessment and Plan - Assessment (1) Cellulitis of right upper extremity Code(s): L03.113 - Cellulitis of right upper limb Status: Acute (2) Abscess of right olecranon bursa Code(s): M71.021 - Abscess of bursa, right elbow Status: Acute - Plan 62 incarcerated YOWM with no significant medical history admitted 04/22 for post- traumatic RUE abscess and cellulitis. 1. RUE abscess and cellulitis - Secondary to trauma after falling in the [facility] bathroom - S/P bedside I&D in the ED with minimal purulent output - U/S showing soft tissue swelling, edema, and hyperemia around the R elbow without discrete abscess - ESR and CRP elevated - Leukocytosis resolved - Blood cultures from 04/22 NGTD - Abscess culture growing Staph and group A strep - Ortho following, would like continued IV antibiotics as of 04/27. Awaiting recommendations today - Continue IV cefazolin - Pain control - Wound care 2. HTN - Improved - Continue amlodipine - Clonidine PRN - Continue to monitor 3. UDS + for benzo - Counseled 4. Left palm laceration - Partially healed but still open - Wound care nurse recommends leaving open to air DVT prophylaxis: Lovenox Discussed Condition With: Patient Discharge Planning: When cleared by ortho
--- NOTE | 2018-04-28 14:27 | P.PNWCN ---
Wound Care Nurse Consult Description: Wound consult for Wound management of left palm per Dr Pandya Communicated with: Patient Recommendation: Leave left hand dry intact scab open to air. If wound opens and begins to drain please [facility] department of natural resources officer for dressing options. Additional information: Patient seen on for evaluation of left hand wound.
--- NOTE | 2018-04-29 07:30 | P.PNOP ---
Subjective Interval history: Fernando is a pleasant 62-year-old male. He was admitted for right elbow cellulitis with olecranon bursitis. Overall his pain is improving. Physical Exam Vital signs: Vital Signs 04/28/18 08:00 04/28/18 12:00 04/28/18 16:00 Temperature 98.1 F 97.7 F 98.8 F Pulse Rate 69 68 Respiratory Rate 18 17 16 Blood Pressure 130/78 126/69 131/71 Pulse Oximetry 93 L 97 95 04/28/18 20:00 04/29/18 00:00 Temperature 99.1 F 98.0 F Pulse Rate 70 68 Respiratory Rate 18 18 Blood Pressure 120/69 162/97 H Pulse Oximetry 94 L 98 Intake & Output 04/28/18 04/29/18 04/29/18 18:59 06:59 18:59 Intake Total 1040 / 1040 Balance 1040 / 1040 Intake: IV 200 / 200 Ancef Inj 1,000 MG In NS Inj 200 / 200 100 ML @ 200 mls/hr IV.SIG Q8H GINO Rx#:[id number] Oral 840 / 840 Other: # Voids 3 2 # Bowel Movements 1 Narrative: Fernando is awake and alert. Examination of right arm reveals improvement of swelling. There is minimal drainage. There is no fluctuance over the olecranon bursa. There is minimal warmth or cellulitis present. Elbow range of motion is from 10 up to 130 with minimal pain. Sensation is intact in all fingers. - Constitutional no acute distress - Routine HEENT Exam Head: Present: normocephalic Results - Labs CBC & Chem 7: 04/27/18 03:00 04/27/18 03:00 Assessment and Plan - Problem List (1) Abscess of right olecranon bursa Code(s): M71.021 - Abscess of bursa, right elbow Status: Deleted Plan: His condition was discussed and the options of treatment were discussed. Surgical and continued wound care discussed. He did have a small area with some continued purulent drainage distal to the original site. The original site shows significant improvement. His overall swelling in his arm appears to be improving. His elbow range of motion appears very good. There does not appear to be spread of the infection into the elbow joint. The MRI scan did show some edematous change within the ulna. It is possible that this is secondary to the original contusion when he fell about 1 week ago. There remains some risk of spread of infection into the bone. There is the possibility that infection/early osteomyelitis has recurred. Clinically, he does appear to be improving. The current recommendation is to proceed with IV antibiotics and local wound care and monitor progress. Recommend which to TID wet to dry dressing changes. Monitor A mid level provider in my office, nurse practitioner or PA, may see this patient on a follow up basis and continue to implement the plan including: starting or adjusting medications, injections of muscle, tendons, bursa or joints, cast application, orthotic or brace application, physical therapy, further radiographic studies including X-ray, MRI, CT, ultrasound or bone scan , vascular studies, neurological studies, or other specialist consultations, and proceeding with surgical management as appropriate. - Assessment and Plan Fernando has septic right olecranon bursitis--improving significantly Continue daily dressings Continue antibiotics Patient may follow with Dr. Chiki Ricardo as needed.
[2018-04-29] MEDS: Senna/Docusate Sodium 8.6/50 MG Tablet PO SCH ×2 (08:56→20:32)
[2018-04-29] MEDS: amLODIPine 5 MG Tablet PO SCH (08:57)
--- NOTE | 2018-04-29 11:38 | P.PNIM ---
Subjective Interval history: Doing okay. States that right elbow pain has improved. Significant swelling and redness has gone down and Physical Exam Vital signs: Vital Signs 04/28/18 12:00 04/28/18 16:00 04/28/18 20:00 Temperature 97.7 F 98.8 F 99.1 F Pulse Rate 69 68 70 Respiratory Rate 17 16 18 Blood Pressure 126/69 131/71 120/69 Pulse Oximetry 97 95 94 L 04/29/18 00:00 04/29/18 08:00 Temperature 98.0 F 97.4 F L Pulse Rate 68 76 Respiratory Rate 18 18 Blood Pressure 162/97 H 109/66 Pulse Oximetry 98 98 Intake & Output 04/28/18 04/29/18 04/29/18 18:59 06:59 18:59 Intake Total 1040 / 1040 Balance 1040 / 1040 Intake: IV 200 / 200 Ancef Inj 1,000 MG In NS Inj 200 / 200 100 ML @ 200 mls/hr IV.SIG Q8H GINO Rx#:[id number] Oral 840 / 840 Other: # Voids 3 2 # Bowel Movements 1 Narrative: GENERAL: This is a well-nourished, well-developed patient, in no apparent distress. CARDIOVASCULAR: Regular rate and rhythm without murmurs, gallops, or rubs. RESPIRATORY: Clear to auscultation. Breath sounds equal bilaterally. No wheezes , rales, or rhonchi. GASTROINTESTINAL: Abdomen soft, non-tender, nondistended. Normal active bowel sounds MUSCULOSKELETAL: Right arm showed improvement of swelling and redness. No fluctuance over the olecranon bursa. Neurovascularly intact. NEURO: Alert & Oriented x4 to person, place, time, situation. Moves all ext x4 J Results - Labs CBC & Chem 7: 04/27/18 03:00 04/27/18 03:00 Assessment and Plan - Assessment (1) Cellulitis of right upper extremity Code(s): L03.113 - Cellulitis of right upper limb Status: Acute (2) Abscess of right olecranon bursa Code(s): M71.021 - Abscess of bursa, right elbow Status: Acute - Plan 62 incarcerated YO WM with no significant medical history admitted 04/22 for post- traumatic RUE abscess and cellulitis. 1. RUE abscess and cellulitis - Secondary to trauma after falling in the assisted bathroom - S/P bedside I&D in the ED with minimal purulent output - U/S showing soft tissue swelling, edema, and hyperemia around the R elbow without discrete abscess - ESR and CRP elevated - Leukocytosis resolved - Blood cultures from 04/22 NGTD - Abscess culture growing Staph and group A strep - Ortho following, would like continued IV antibiotics as of 04/29. - Continue IV cefazolin and clinically improving and likely can be switched over to p.o. Keflex soon - Pain control - Wound care 2. HTN, chronic essential - Improved - Continue amlodipine - Clonidine PRN - Continue to monitor 3. UDS + for benzo - Counseled 4. Left palm laceration - Partially healed but still open - Wound care nurse recommends leaving open to air Discharge Planning: Discharge when cleared by orthopedic surgery
[2018-04-30] MEDS: amLODIPine 5 MG Tablet PO SCH (09:46)
[2018-04-30] MEDS: Senna/Docusate Sodium 8.6/50 MG Tablet PO SCH ×2 (09:47→22:42)
--- NOTE | 2018-04-30 16:38 | P.PNIM ---
Subjective Interval history: FU right elbow pain. Patient states the pain is only worse with movement. He is homeless but states his girlfriend can do his dressing changes. She will be coming to the hospital tomorrow to learn how to. Denies any chest pain. Physical Exam Vital signs: Vital Signs 04/29/18 18:08 04/29/18 20:42 04/30/18 00:10 Temperature 98.4 F 98.0 F Pulse Rate 82 62 Respiratory Rate 20 18 20 Blood Pressure 120/67 129/67 Pulse Oximetry 98 98 04/30/18 12:00 04/30/18 12:54 Temperature 98.0 F Pulse Rate 79 Respiratory Rate 17 17 Blood Pressure 127/70 Pulse Oximetry 96 Intake & Output 04/29/18 04/30/18 04/30/18 18:59 06:59 18:59 Intake Total 100 / 100 980 / 980 Output Total 800 / 800 Balance 100 / 100 180 / 180 Weight 81.6 kg Intake: IV 100 / 100 200 / 200 Ancef Inj 1,000 MG In NS Inj 100 / 100 200 / 200 100 ML @ 200 mls/hr IV.SIG Q8H [facility] Rx#:[id number] Oral 780 / 780 Output: Urine 800 / 800 Other: Date of Last Bowel Movement 04/29/18 04/29/18 Narrative: GENERAL: This is a well-nourished, well-developed patient, in no apparent distress. CARDIOVASCULAR: Regular rate and rhythm without murmurs, gallops, or rubs. RESPIRATORY: Clear to auscultation. Breath sounds equal bilaterally. No wheezes , rales, or rhonchi. GASTROINTESTINAL: Abdomen soft, non-tender, nondistended. Normal active bowel sounds MUSCULOSKELETAL: Right arm showed improvement of swelling and redness. No fluctuance over the olecranon bursa. Neurovascularly intact. NEURO: Alert & Oriented x4 to person, place, time, situation. Moves all ext x4 Results - Labs CBC & Chem 7: 04/27/18 03:00 04/27/18 03:00 Assessment and Plan - Assessment (1) Cellulitis of right upper extremity Code(s): L03.113 - Cellulitis of right upper limb Status: Acute (2) Abscess of right olecranon bursa Code(s): M71.021 - Abscess of bursa, right elbow Status: Acute - Plan 62 incarcerated YO WM with no significant medical history admitted 04/22 for post- traumatic RUE abscess and cellulitis. 1. RUE abscess and cellulitis - Secondary to trauma after falling in the correction bathroom - S/P bedside I&D in the ED with minimal purulent output - U/S showing soft tissue swelling, edema, and hyperemia around the R elbow without discrete abscess - ESR and CRP elevated - Leukocytosis resolved - Blood cultures from 04/22 NGTD - Abscess culture growing Staph and group A strep - Ortho following, would like continued IV antibiotics as of 04/29. - Will switch antibiotics to Keflex in AM for discharge, and he should be discharged on it for 7 days, due to patient being homeless wound healing may be compromised. Continue IV ancef til am - Pain control PRN PO Lequire - Wound care TID wet to dry 2. HTN, chronic essential - Improved - Continue amlodipine - Clonidine PRN - Continue to monitor 3. UDS + for benzo - Counseled 4. Left palm laceration - Partially healed but still open - Wound care nurse recommends leaving open to air DVT prophylaxis: ambulation, scds Discussed Condition With: Patient and RN
[2018-05-01 06:24] LABS: Anion Gap 6 meq/L (5-15); Blood Urea Nitrogen 15 mg/dL (7-18); Calcium 9.1 mg/dL (8.5-10.1); Carbon Dioxide 27.3 meq/L (21.0-32.0); Chloride 102 meq/L (98-107); Glomerular Filtration Rate Greater Than 89 mL/min (>89); Glucose,Random 86 mg/dL (74-106); Potassium 4.3 meq/L (3.5-5.1); Sodium 135 meq/L (136-145)
[2018-05-01] MEDS: Senna/Docusate Sodium 8.6/50 MG Tablet PO SCH (08:50)
[2018-05-01] MEDS: amLODIPine 5 MG Tablet PO SCH (08:51)
--- NOTE | 2018-05-01 14:06 | P.CONID ---
History of Present Illness Primary Care Provider: No Primary Care Physician History of Present Illness: Patient seen and examined. Records reviewed. Patient is a 62-year-old male, presented to the hospital complaining of pain and swelling on his right arm. Patient was recently in shelter and he was released April 23. Apparently while in shelter he fell and he hit his right elbow. He really did not pay much attention to it up until the day prior to admission when he started developing swelling, and pain on his right elbow. It started draining on the day of admission so he presented to the hospital for further evaluation and treatment. Patient had I&D of the abscess in his right elbow and culture grew MSSA and strep. He has not been febrile. He is experiencing marked improvement in the pain and swelling, and has no problem with range of motion on that elbow joint. He had an MRI and there is some suggestion of possible contusion on the olecranon. Patient is currently on Keflex and doing well. Infectious disease consultation has been requested to make recommendation regarding antibiotic treatment. Review of Systems Constitutional: Denies chills, Denies fever(s) Eyes: Denies discharge, Denies dry eyes Ears, Nose, Mouth, and Throat: Denies dry mouth, Denies facial pain, Denies headache(s), Denies mouth pain, Denies sore throat Cardiovascular: Denies chest pain, Denies shortness of breath Respiratory: Denies chest congestion, Denies cough, Denies shortness of breath Gastrointestinal: Denies abdominal pain, Denies constipation, Denies nausea, Denies pain with swallowing, Denies vomiting Genitourinary: Denies painful urination Musculoskeletal: Reports joint pain Skin/Breast: Denies rash PMFSH - History History Provided By: Patient - Medical History Medical History: Medical History (Last Reviewed 05/01/18 @ 13:45 by Radha Aponte MD) Patient denies medical problems (Acute) - Surgical History Surgical History: Surgical History (Last Reviewed 05/01/18 @ 13:45 by Radha Aponte MD) No history of previous surgery - Family History Family History: Family History (Last Reviewed 04/22/18 @ 22:32 by Chiki Ricardo MD) Other Patient denies significant medical history - Tobacco History Second Hand Smoke Exposure: No Smoking Status: Former smoker Tobacco Type: Cigarettes - Alcohol History How Often Do You Have a Drink Containing Alcohol: Never - Substance Use History Substance History: No History of Abuse, Past History (THC, mushrooms, Snorting heroin; denies IVDU) - Travel History Recent Travel in the [place] Within the Last 8 Weeks: No Recent Travel Out of the Country Within the Last 8 Weeks: No - Immunization History Tetanus Immunization: <5 Years Hx Influenza Vaccine This Season: No Medications and Allergies Active Medications: Active Medications Acetaminophen (Tylenol) 650 mg PO Q4H PRN PRN Reason: PAIN 1-10 AND/OR FEVER >101F Last Admin: 04/26/18 15:34 Dose: 650 mg Hydrocodone Bitart/Acetaminophen (Arthur 5/325) 1 tab PO Q4H PRN PRN Reason: PAIN SCALE 1 TO 10 Last Admin: 05/01/18 05:50 Dose: 1 tab Al Hydroxide/Mg Hydroxide (Milk Of Magnesia Liq) 30 ml PO Q12H PRN PRN Reason: Mild Constipation Amlodipine Besylate (Norvasc) 5 mg PO DAILY [facility] Last Admin: 05/01/18 08:51 Dose: 5 mg Bisacodyl (Dulcolax Supp) 10 mg RECTAL DAILY PRN PRN Reason: SEVERE CONSITIPATION Cephalexin Monohydrate (Keflex) 500 mg PO Q6H [facility] Stop: 05/11/18 23:00 Clonidine HCl (Catapres) 0.1 mg PO Q6H PRN PRN Reason: SBP>180, DBP>110 Lactulose (Lactulose Liq) 30 ml PO DAILY PRN PRN Reason: SEVERE CONSITIPATION Ondansetron HCl (Zofran Odt) 4 mg PO Q6H PRN PRN Reason: NAUSEA Senna/Docusate Sodium (Diane-Colace) 1 tab PO BID [facility] Last Admin: 05/01/18 08:50 Dose: Not Given Sennosides (Senokot) 17.2 mg PO Q12H PRN PRN Reason: Moderate Constipation Sodium Chloride (Ns Flush) 2 ml IV.FLUSH BID [facility] Last Admin: 05/01/18 08:51 Dose: 2 ml Sodium Chloride (Ns Flush) 2 ml IV.FLUSH PRN PRN PRN Reason: FLUSH AFTER USING IV ACCESS Last Admin: 04/26/18 02:09 Dose: 2 ml Allergies Allergy/AdvReac Type Severity Reaction Status Date / Time doxycycline Allergy Severe Rash Verified 07/04/17 14:41 sulfamethoxazole Allergy Intermediate Itching Verified 04/22/18 09:05 trimethoprim Allergy Intermediate Itching Verified 04/22/18 09:05 Exam Vital signs: Vital Signs 04/30/18 16:00 04/30/18 20:00 05/01/18 00:00 Temperature 98.3 F 97.9 F 98 F Pulse Rate 76 73 62 Respiratory Rate 16 18 18 Blood Pressure 102/61 116/68 114/63 Pulse Oximetry 97 96 93 L 05/01/18 03:15 05/01/18 08:00 Temperature 98.1 F Pulse Rate 74 Respiratory Rate 18 18 Blood Pressure 145/66 H Pulse Oximetry 97 Intake & Output 04/30/18 05/01/18 05/01/18 18:59 06:59 18:59 Intake Total 740 / 740 404 / 404 Balance 740 / 740 404 / 404 Weight 81.4 kg Intake: IV 200 / 200 Ancef Inj 1,000 MG In NS Inj 200 / 200 100 ML @ 200 mls/hr IV.SIG Q8H [facility] Rx#:[id number] Oral 740 / 740 204 / 204 Other: # Voids 3 Date of Last Bowel Movement 04/29/18 04/30/18 # Bowel Movements 2 Narrative: Physical Examination GENERAL: Patient is a well-nourished, well-developed male, awake and alert, not in respiratory distress. SKIN: Cool and dry. Has dry skin, and rough texture HEAD: Atraumatic. Normocephalic. No temporal wasting, or tenderness. EYES: [place] conjunctiva. No petechia or hemorrhage. Pupils equal, round and reactive to light. Extraocular movements full and intact. No scleral icterus. No injection or drainage. EARS, NOSE AND THROAT: Nose without bleeding or purulent nasal discharge. No sinus tenderness. Mucous membranes pink and moist. No oral lesions noted. No exudate. No oral thrush. NECK: Trachea midline. Supple and not tender, no meningeal signs CARDIOVASCULAR: Regular rate and rhythm. No murmurs, rubs or gallops heard RESPIRATORY: Clear to auscultation. Breath sounds equal bilaterally. No rales , wheezing or rhonchi ABDOMEN: Soft, non-tender, nondistended. Bowel sounds present and normoactive. No guarding. No rebound. No organomegaly. EXTREMITIES: No clubbing, cyanosis, or edema. R elbow, has open wound, with red granulation tissue and small area with slough, no surrounding erythema, or swelling/induration, no joint effusion, has good ROM. No calf tenderness. Well perfused and warm. NEUROLOGICAL: Awake and alert. Cranial nerves grossly intact. Motor grossly within normal limits. PSYCHIATRIC: Normal affect, calm and cooperative. LINE: No evidence of infection Results - Labs CBC & Chem 7: 04/27/18 03:00 05/01/18 05:01 Labs: Laboratory Results - last 24 hr 05/01/18 05:01 Sodium 135 L Potassium 4.3 Chloride 102 Carbon Dioxide 27.3 Anion Gap 6 BUN 15 Creatinine 0.80 Estimated GFR Greater than 89 Random Glucose 86 Calcium 9.1 - Imaging Elbow MRI 04/22/18 00:00 CONCLUSION: 1. Marrow edema and enhancement in the olecranon. Differential diagnosis includes bone contusion with enhancement or early osteomyelitis. No significant bone destruction identified. 2. Extensive cellulitis over the posterior elbow with packing material, subcutaneous edema and probable small microabscess formation. Elbow X-Ray 04/22/18 00:00 CONCLUSION: There is prominent soft tissue swelling as well as subcutaneous emphysema posterior to the elbow concerning for infection with gas-forming organism. Prominent edema is also suspected along the posterior aspect of the arm. No underlying bone abnormality. Upper Extremity Ultrasound 04/22/18 16:56 CONCLUSION: 1. Soft tissue swelling, edema and hyperemia around the right elbow without discrete abscess. Assessment and Plan - Plan Impression Abscess R elbow - S/P I and D, C?S MSSA and GAS - findings on MRI, likely contusion of his olecranon Recommendation OK to D/C Give Keflex 500 QID x 10 days Needs instructions on wound care Thank you for this consultation Explained plan to patient D/W Juan GUARDADO
--- NOTE | 2018-05-01 14:13 | P.DS ---
Date of admission: 04/22/18 19:31 Primary care physician: No Primary Care Physician Attending physician on discharge: Brian Joseph Anticipated date of discharge: 05/01/18 Brief History from admission: 62-year-old white male being admitted for R arm abscess. Patient was in his usual state of health until about 2-3 days ago when he began experiencing right arm and elbow swelling. Says that he was in correction at the time and fell on the bathroom floor. Says it started draining today and decided come to the emergency department. Reports feeling a little lightheaded for the past few days. Patient denies this ever occurring to him in the past. He is homeless, says he was incarcerated for trespassing, says he sleeps where he can find a spot. Patient came to the ER, had spontaneous rupture of volar aspect of abscess welling with drainage. Had packing placed. Found to be hyponatremic. DS: Medications - Discharge Medications Prescriptions: cephalexin [Keflex] 500 mg PO QID 10 Days #80 cap DS: Summary Hospital Course: 62 incarcerated YO WM with no significant medical history admitted 04/22 for post- traumatic RUE abscess and cellulitis. 1. RUE abscess and cellulitis septic right olecranon bursitis - Secondary to trauma after falling in the correction bathroom - S/P bedside I&D in the ED with minimal purulent output - U/S showing soft tissue swelling, edema, and hyperemia around the R elbow without discrete abscess - ESR and CRP elevated - Leukocytosis resolved - Blood cultures from 04/22 NGTD - Abscess culture growing Staph and group A strep - Ortho following, would like continued IV antibiotics as of 04/29. - consult placed to ID discussed with Dr. Aponte cleared for DC recommending Keflex 500 mg QID x 10 days - transitioned to Keflex PO - patient being homeless wound healing may be compromised. - Wound care TID wet to dry- nursing to instruct patient's girlfriend on dressing changes. Patient's girlfriend reports she has done dressing changes and wound care for him in the past 2. HTN, chronic essential - Improved - Continue amlodipine - Clonidine PRN - Continue to monitor 3. UDS + for benzo - Counseled 4. Left palm laceration - Partially healed but still open - Wound care nurse recommends leaving open to air DVT prophylaxis: ambulation, scds Discussed Condition With: Supervising physician Dr. Joseph, ID Dr. Aponte, Patient, case management and RN - Time Spent with Patient Total time spent providing and/or coordinating discharge services: Greater than 30 minutes - Quality: VTE Deep Vein Thrombosis/Pulmonary Embolism Present on Admission: No Exam Vital signs: Vital Signs 04/30/18 16:00 04/30/18 20:00 05/01/18 00:00 Temperature 98.3 F 97.9 F 98 F Pulse Rate 76 73 62 Respiratory Rate 16 18 18 Blood Pressure 102/61 116/68 114/63 Pulse Oximetry 97 96 93 L 05/01/18 03:15 05/01/18 08:00 Temperature 98.1 F Pulse Rate 74 Respiratory Rate 18 18 Blood Pressure 145/66 H Pulse Oximetry 97 Intake & Output 04/30/18 05/01/18 05/01/18 18:59 06:59 18:59 Intake Total 740 / 740 404 / 404 Balance 740 / 740 404 / 404 Weight 81.4 kg Intake: IV 200 / 200 Ancef Inj 1,000 MG In NS Inj 200 / 200 100 ML @ 200 mls/hr IV.SIG Q8H [facility] Rx#:[id number] Oral 740 / 740 204 / 204 Other: # Voids 3 Date of Last Bowel Movement 04/29/18 04/30/18 # Bowel Movements 2 Narrative: GENERAL: This is a well-nourished, well-developed patient, in no apparent distress. CARDIOVASCULAR: Regular rate and rhythm RESPIRATORY: Clear to auscultation. Breath sounds equal bilaterally. GASTROINTESTINAL: Abdomen soft, non-tender, nondistended. Normal active bowel sounds MUSCULOSKELETAL: Right arm showed improvement of swelling and redness. No fluctuance over the olecranon bursa. Neurovascularly intact. dressing dry and intact NEURO: Alert & Oriented x4 to person, place, time, situation. Moves all ext x4 Results Procedures completed during hospitalization: S/P bedside I&D in the ED Labs on day of discharge: Labs from last 24 hours 05/01/18 05:01 Sodium 135 L Potassium 4.3 Chloride 102 Carbon Dioxide 27.3 Anion Gap 6 BUN 15 Creatinine 0.80 Estimated GFR Greater than 89 Random Glucose 86 Calcium 9.1 - Impressions ITS Impressions Elbow MRI 04/22/18 00:00 CONCLUSION: 1. Marrow edema and enhancement in the olecranon. Differential diagnosis includes bone contusion with enhancement or early osteomyelitis. No significant bone destruction identified. 2. Extensive cellulitis over the posterior elbow with packing material, subcutaneous edema and probable small microabscess formation. Elbow X-Ray 04/22/18 00:00 CONCLUSION: There is prominent soft tissue swelling as well as subcutaneous emphysema posterior to the elbow concerning for infection with gas-forming organism. Prominent edema is also suspected along the posterior aspect of the arm. No underlying bone abnormality. Upper Extremity Ultrasound 04/22/18 16:56 CONCLUSION: 1. Soft tissue swelling, edema and hyperemia around the right elbow without discrete abscess. Discharge Plan - Discharge Disposition Patient Disposition: Discharge Home - Discharge Condition Condition: Stable - Discharge Order Discharge Orders: Discharge Order (Routine); Ordered 05/01/18 Ordered By: Yenifer Negro - Discharge Details Anticipated Discharge Date: 05/01/18 - Physicians Team Primary Care Provider: Primary Care Tamara Nunes Attending Provider: Brian Joseph Other Providers: Chiki Ricardo MD ; Kendrick Davalos MD ; Radha Aponte MD
== END 2018-05-01 17:38 | disposition home or self-care (01) ==
LOC: NEDA 08:33 → NEPC 08:33 → NEDA 14:18 → NEPHCDU 14:23 → NEPGCP 04-24 17:35 → N07 04-25 14:08
PROVIDERS: ADMIT Internal Medicine; ATTEND Internal Medicine